=== PATIENT | female | born 1940 | race Caucasian/White ===

== ENCOUNTER 2019-07-24 08:42 | Inpatient (IN) | payer MEDICARE, OTHER, SELFPAY ==
[2019-07-17 08:03] VITALS: BMI 24.0
--- NOTE | 2019-07-23 13:01 | SUR.PREOP ---
left msg with pt regarding change in check times for her procedure. Requested her to ck-in at [phone] rather than [phone].
[2019-07-24] VITALS (22 sets, daily range): BP systolic 97–145; BP diastolic 50–89; PULSE 64–80; RESP 10–18; TEMP 35.9–37.1; O2SAT 3–99; BMI 25.6
--- NOTE | 2019-07-24 | DI.RAD.S_ITS ---
PROCEDURE: XR LUMBAR SPINE 2-3V INDICATIONS: L2-5 LAMINECTOMY, L4-5 INSTRUMENTATION TECHNIQUE: Fluoroscopic images were obtained during an operative procedure and submitted for interpretation following the completion of the procedure. COMPARISON: [facility], , MR LUMBAR SPINE WITHOUT CONTRAST, 04/16/2019, 7:58. [facility], CR, XR LUMBAR SPINE 2 OR 3 VIEWS, 05/21/2019, 11:39. FINDINGS: These fluoroscopic images were performed for intraoperative localization. On these images, pedicle screws are seen at L4 and L5. Vertical fixation rods are seen. There is a disc spacer seen at the L4-L5 level. Please correlate with intraoperative findings. IMPRESSION: Normal intraoperative examination. Dictated by: Ze Cano M.D. on 07/24/2019 at 14:55 Approved by: Ze Cano M.D. on 07/24/2019 at 14:55
[2019-07-24] MEDS: GABAPENTIN 300 MG CAPSULE PO ×2 (09:22→20:24)
[2019-07-24] MEDS: ACETAMINOPHEN 325 MG TABLET 975 MG PO (09:22)
[2019-07-24] MEDS: LACTATED RINGERS 1,000 ML 42 ML IV ×3 (09:22→15:47)
--- NOTE | 2019-07-24 09:35 | PM.PREOP ---
Pre-operative Note Interval Note History & Physical reviewed/Exam performed by Physician: Yes Changes to H&P: No
--- NOTE | 2019-07-24 09:36 | PM.OP.1 ---
Operative Date/Time/Diagnoses Date of procedure: 07/24/19 Time of procedure: 14:40 Pre-op diagnosis: Lumbar stenosis with radiculopathy Lumbar spondylolisthesis Post-op diagnosis: same Procedure & Clinicians Procedure: L4-5 TLIF (posterior/posterior interbody fusion) with cage L4, 5 screws Iliac crest bone graft aspirate L2-3, L3-4, L4-5 laminectomies Use of microscope Placement of epidural catheter Same procedure as scheduled: Yes Indications: [age] year old female with intractable pain from stenosis. They had failed conservative management and requested operative intervention. Risks and benefits of surgery were discussed and appropriate consents were obtained. Surgeon: Sid Jolly Vacuum Furnace Operator: Madiha Roy Anesthesia Type: General Operative Notes Findings: None Closure Type: primary Specimen(s): none sent Prosthetic devices, grafts, tissues, transplants, or devices: NuVasive MAS reline screws Globus Rise cage Applied: catheter Estimated Blood Loss (mL): 20 Procedure in detail: The patient was brought to the operating room and intubated on the table. A time-out was performed. They were then rolled over to the well-padded Ismael table in the prone position. Preoperative antibiotics were given. The back was prepped and draped in the standard sterile fashion. Using fluoroscopy, a 8 cm longitudinal incision was made to the right of the midline. We used Bovie to come down to and split the lumbodorsal fascia. Using fluoroscopy and monitoring, we then percutaneously placed Jamshidi needles down the pedicles of L4 and L5 on the right side. These were changed out to guidewires and then we tapped and then placed the NuVasive MAS Reline screw shanks. We then opened up the retractors and used Bovie to clear up the posterolateral gutter as well as medially along the lamina to the spinous processes. A bur was used to decorticate the transverse processes. We brought in the microscope. Using a combination of bur and Kerrison rongeurs, a laminectomy was performed from the right side. We cleared over past the midline and carefully depressed the dura until we were able to decompress the opposite side. We cleared out the neural foramen with greater than 50% facetectomy. This completed the laminectomy at L4-5. This was separate and distinct from the TLIF approach as we were extensively decompressing the severely stenotic canal and the nerves. We then began the TLIF prep. We carefully cleaned up the remainder of the foramen and facet until we could easily retract the exiting root as well as clearing medially below the dura and expose the disc space. The disc was prepped with bipolar and then an annulotomy was performed. We performed a diskectomy using a combination of paddles, celine, pituitaries, and curettes. We distracted the disc using a paddle and locked the retractor in an open position. We then filled the disc space with Osteocel bone graft. We then placed the globus Rise cage under fluoroscopy and then filled this in with more bone graft. The distraction on the retractor was released to compress down. This completed the posterior interbody fusion portion of the TLIF at L4-5. We then rotated the retractor and expanded to go up to the L3-4 level. We cleared off the soft tissue off the lamina. We performed a right-sided laminectomy at L3-4, clearing out the central canal as well as the neural foramen. Everything was clear with the ball probe at the end of this. We then took the retractor 1 level further and exposed L2-3. We performed right-sided laminectomy at L2-3 clearing up the central canal and the neural foramen. Everything was clear with a ball probe at the end. We then placed the screw heads, juana, and locked down the set screws. The wound was copiously irrigated. A small stab incision was made over the PSIS. We used a Jamshidi needle to aspirate several mL of bone marrow from the pelvis. This was mixed with the remaining Osteocel and combined with all of the locally harvested bone graft and placed in the posterolateral gutter for the posterior fusion of the TLIF at L4-5. An epidural catheter was then placed in the spinal canal by carefully depressing the dura and advancing it 6 cm cephalad under the remaining lamina without resistance. The muscle fascia was closed. The catheter was then injected with a solution containing 4 mL of 0.5% Marcaine, 1 mg Stadol, 4 mg Duramorph, and 100 mcg of fentanyl. This was injected without resistance and the catheter was pulled. We then went to the opposite side. Again using fluoroscopy, a 3 cm incision was made and Bovie was used to come down to split the fascia. Using neural monitoring and fluoroscopy, Jamshidi needles were advanced down the pedicles of L4 and L5 on the left side. These were switched over guidewires, tapped, and screws placed. We then placed a juana and locked the set screws on this side. The wound was irrigated. The fascia was closed. Vancomycin powder was placed in the wounds. The superficial and skin were closed. A sterile dressing was placed. The patient was then rolled over extubated and brought to recovery room without complications. Complications: none Post-operative Condition: stable Disposition: PACU Plan for aftercare: Inpatient. Up with therapy.
[2019-07-24] MEDS: CEFAZOLIN 2 GM/100 ML FROZ.PIGGY IV ×2 (10:35→19:03)
--- NOTE | 2019-07-24 11:15 | SUR.OPER ---
Prone on spine table, head in foam head support, padded chest and pelvic supports, gel pad at knees, lower legs supported by pillows; nipples, genitalia and toes free of pressure, arms secured on foam padded arm boards at <90 degrees abduction. Tape over blanket at thigh secured to table.
[2019-07-24] MEDS: THROMBIN (RECOMBINANT) 5,000 UNIT VIAL 5000 UNIT TOP (11:52)
[2019-07-24] MEDS: VANCOMYCIN 1,000 MG VIAL 1000 MG TOP (11:54)
[2019-07-24] MEDS: SODIUM CHLORIDE 0.9% 1,000 ML, GENTAMICIN 80 MG IRR (11:54)
[2019-07-24] MEDS: BUPIVACAINE 0.5% (PF) 4 ML, MORPHINE-PF 4 MG, BUTORPHANOL 1 MG, fentaNYL 100 MCG INJ (14:00)
[2019-07-24] MEDS: fentaNYL 100 MCG/2 ML INJ IV (15:45)
--- NOTE | 2019-07-24 16:02 | SUR.PHASEI ---
When patient falls to sleep, O2 saturation decreases to 88% on 4 liters. Encouraged deep breathing. O2 saturation back up to 97% with encouragement.
--- NOTE | 2019-07-24 16:52 | SUR.PHASEI ---
changed posterior dressing due to breakthrough bleeding using sterile technique with abd pad, 4x4s and large tegaderm. Tolerated without difficulty.
[2019-07-24] MEDS: dilTIAZem 30 MG TABLET 60 MG PO ×2 (17:47→20:23)
[2019-07-24] MEDS: LACTATED RINGERS 1,000 ML 125 ML IV (17:54)
[2019-07-24] MEDS: ACETAMINOPHEN 325 MG TABLET 650 MG PO (18:41)
[2019-07-24] MEDS: HYDROCODONE/ACET 5/325 TABLET 1 TAB PO (18:45)
[2019-07-24] MEDS: SENNOSIDES 8.6 MG TABLET 17.2 MG PO (20:22)
[2019-07-24] MEDS: HYDROMORPHONE 0.5 MG INJ IV (20:22)
[2019-07-24] MEDS: hydrOXYzine pamoate 25 MG CAPSULE PO (20:22)
[2019-07-24] MEDS: OXYBUTYNIN 5 MG ER TAB 20 MG PO (20:23)
[2019-07-24] MEDS: DOCUSATE 100 MG CAPSULE PO (20:24)
[2019-07-24] MEDS: CELECOXIB 200 MG CAPSULE PO (20:25)
--- NOTE | 2019-07-24 22:56 | PC.NURSE ---
Pt is A and O x 4, occ forgetful. Pt rates px 5/10 and got some relief from one [place], and better relief from 0.5 mg IVP dilaudid. She was able to eat dinner and drinks fluids. Her lungs are clear, slight murmur otherwise S1, S2. Large bruise on L hand from PIV start and PIV in L AC is positional. Waever output is WNL, clear yellow. + BTs. Pleasant and cooperative.
[2019-07-25] VITALS (10 sets, daily range): BP systolic 99–131; BP diastolic 45–78; PULSE 62–77; RESP 16–18; TEMP 36.7–37; O2SAT 92–97
[2019-07-25] MEDS: CEFAZOLIN 2 GM/100 ML FROZ.PIGGY IV (03:13)
[2019-07-25] MEDS: LACTATED RINGERS 1,000 ML 125 ML IV (03:15)
[2019-07-25] MEDS: hydrOXYzine pamoate 25 MG CAPSULE PO (03:19)
[2019-07-25 05:11] LABS: Hematocrit 33.7 % (36-46); Hemoglobin 11.6 g/dL (12.0-16.0)
[2019-07-25 05:17] LABS: Blood Urea Nitrogen 14 mg/dL (7-17); Calcium 8.6 mg/dL (8.4-10.2); Carbon Dioxide 28 mmol/L (22-32); Chloride 100 mmol/L (98-107); Estimated Glomerular Filt Rate > 60.0 mL/min (>60); Glucose 144 mg/dL (80-110); HEMOLYSIS < 15 (0-50); Potassium 4.4 mmol/L (3.4-5.1); Sodium 135 mmol/L (137-145)
--- NOTE | 2019-07-25 06:19 | PC.NURSE ---
Pr POD 1 s/p L2-L5 laminectomy and L4-L5 fusion with cage. DSG to mid back with quarter size shadow drainage of bottom border. Pt with slight numbness to right leg/foot that's normal for me and tingling to left foot. Pt able to perform ankle waves. CMS intact. Pt denied all pain overnight. Pt has Piece Marker Small Arms Esophagus. Pt reports her 60mg cardizem 4 times/day is for this condition and is to help limit coughing. Pt had dry cough 2-3 times/hour overnight. Vistaril given to help with spasms, pt did report this to be helpful. Weaver patent. Order to remove on POD2. PIV in right AC intact. Continuous IVF of LR @125cc/hr. Fall precautions reinforced. Discussed use of call light for assist out of bed (no OOB activity overnight), use of bed alarm. Reinforced post-op activity precautions. Pt alert and oriented x4, slightly forgetful as to time of day overnight, easily reoriented. Order to titrate os to keep 90%, pt required o2 NC to maintain sat while asleep. Other VSS. Con't to monitor for s/s infection, provide ongoing education to post-op healing and activity limitations. Monitor for effective pain control.
--- NOTE | 2019-07-25 07:53 | PM.PNPO.1 ---
Subjective Subjective Date Patient Seen: 07/25/19 Time Patient Seen: 07:53 Interval history: She is doing very well. Minimal pain. Exam Vital Signs (past 8 hours): - 07/25/19 00:05 07/25/19 03:00 07/25/19 04:57 Temperature 98.1 F 98.5 F Pulse Rate 62 76 66 Respiratory Rate 16 18 16 Blood Pressure 99/45 L 124/49 L 104/53 L Pulse Oximetry 92 93 97 Oxygen Delivery Method Nasal Cannula Oxygen Flow Rate 0 Const Orientation: alert and oriented x3 Back/Spine/Pelvis Other: Dressing changed yesterday for heavy drainage immediately postoperatively but CDI today. 5/5 motor both lower extremities. Objective Labs Result Diagrams: 07/25/19 04:50 07/25/19 04:50 Labs: Laboratory Results - last 24 hr 07/25/19 07/25/19 04:50 04:50 Hgb 11.6 L Hct 33.7 L Sodium 135 L Potassium 4.4 Chloride 100 Carbon Dioxide 28 BUN 14 Creatinine 0.70 Estimated GFR > 60.0 BUN/Creatinine Ratio 20.0 Glucose 144 H Calcium 8.6 Assessment & Plan Post-op Postoperative Procedures: Procedures Operation Date: 07/24/19 10:15 Actual Procedures Side Surgeon p L2-5 laminectomies, L45 instrumentated fusion Sid Jolly MD she is doing very well. I explained to her that her good pain control right now is most likely due to her epidural. That is going to wear off today and I do expect the pain levels to increase. We're going to mobilize her with physical therapy. She hopes to DC to rehab in a few
[2019-07-25] MEDS: estradioL 1 MG TABLET 2 MG PO (08:53)
[2019-07-25] MEDS: OXYBUTYNIN 5 MG ER TAB 20 MG PO ×2 (08:54→19:50)
[2019-07-25] MEDS: MEDROXYPROGESTERONE ACETATE 2.5 MG TABLET 5 MG PO (08:54)
[2019-07-25] MEDS: DOCUSATE 100 MG CAPSULE PO ×2 (08:54→19:49)
[2019-07-25] MEDS: FLUoxetine 20 MG CAPSULE 40 MG PO (08:58)
[2019-07-25] MEDS: HYDROCODONE/ACET 5/325 TABLET 1 TAB PO ×2 (08:59→16:12)
[2019-07-25] MEDS: dilTIAZem 30 MG TABLET 60 MG PO ×4 (09:00→20:53)
--- NOTE | 2019-07-25 11:04 | PT.IIE ---
Current Diagnoses Unilateral primary osteoarthritis, right hip (07/24/19) Spondylolisthesis, lumbar region (07/24/19) Spinal stenosis, lumbar region with neurogenic claudication (07/24/19) Surgery Performed Operation Date: 07/24/19 10:15 Actual Procedures p L2-5 laminectomies, L45 instrumentated fusion - Sid Jolly MD Surgical History (Last Updated 07/17/19 @ 08:31 by Aletha Rivas RN) History of cataract extraction (Acute) History of surgery (Acute) Hx of dilation and curettage (Acute) Medical History (Last Updated 07/24/19 @ 11:50 by Sully hCavez MD) Anxiety (Acute) Arthritis (Acute) Cervical spinal stenosis (Acute) Depression (Acute) Diarrhea (Acute) Difficult airway for intubation (Acute) DJD (degenerative joint disease) (Acute) HLD (hyperlipidemia) (Acute) HTN (hypertension) (Acute) Incontinence of feces (Acute) Inflammatory bowel disease (Acute) Murmur, cardiac (Acute) Non-rheumatic tricuspid valve insufficiency (Acute) Nutcracker esophagus (Acute) Osteoporosis (Acute) Rectal fissure (Acute) Scoliosis (Acute) Spinal stenosis (Acute) Urinary incontinence, mixed (Acute) Zenkers diverticulum (Acute) Physical Therapy Inpatient Evaluation/Re-Eval M1 PT/OT-IP Prior Functional Status Start: 07/24/19 17:26 Freq: NEEDED Status: Active Protocol: Document 07/25/19 09:40 (Rec: 07/25/19 11:04 [email or web address]) Medical Review Prior Functional Status Medical History Reviewed Yes Diet/Fluid Consistency Regular Communication No deficits noted. Able to make needs known. Mobility and Gait Pt stated she was mostly homebound since Mar, 2019 d/t ongoing back pain and multiple falls. She has been using a SPC for home and community mobility. She states that she tends to amb with a shuffling gait d/t poor balance. Activities of Daily Living and IADL's Pt lives alone and able to perform all ADLs and IADLs with a SPC. She also drives prior to surgery. Social History Household Members none Living Arrangements House Number of Floors (Floors) One Floor Number of Stairs To Enter/Railing? 3 DENISE with R rail 1 DENISE from garage without rail . Has a dog lives in a garage that require her to feed. Home Environment High Toilet,Walk in Shower,Tub /Shower Home Equipment Four Wheel Walker,Straight Cane,Raised Toilet Seat w/ Armrests,Tub Transfer Bench, Hand Held Shower,Clinic Assistant,Grab Bars In Shower Employment Status Retired Additional Social History Comment Pt lives alone in [place] . She also has a dog that lives primarily in the garage and stated she has difficulty getting to the garage d/t the step. She currently has a friend staying at her house to feed her dog. Pt has a son that lives in [place]. M2 PT-IP Current Condition Start: 07/24/19 17:26 Freq: NEEDED Status: Active Protocol: Document 07/25/19 09:40 HH (Rec: 07/25/19 11:04 [email or web address]) Physical Therapy Current Condition Current Condition Evaluation Date 07/25/19 Treatment Diagnosis L2-5 Laminectomies, L4-L5 TLIF , difficulty in walking, poor balance Onset Date 07/24/19 Precautions Lumbar Precautions Log Roll,No Twisting,Limit Bending,Lifting Restriction of 10 lbs,Gait Belt above Incisional Area Weight Bearing Status Weight Bearing Status Weight Bear as Tolerated M3 PT-IP Subjective Start: 07/24/19 17:26 Freq: NEEDED Status: Active Protocol: Document 07/25/19 09:40 HH (Rec: 07/25/19 11:04 [email or web address]) Subjective Physical Therapy Visit Type Type Initial Evaluation Visit Start Time 09:40 Visit Stop Time 10:15 Total Visit Minutes 35 Notes Per nursing, pt seemed to have poor short term memory. Number of ASSISTANT EDUCATION DIRECTOR Visits 0 Physical Therapy Visit Comments Patient Comments My back has been feeling fine but im not sure if i could move much since i was very immobilized since Mar. Patient Goals To partipate rehab after this surgery. Therapy Pain Assessment Pain When Pain Assessed During Mobility Pain Present Pain Present Pain Reported Location bilateral legs and back Intensity 3 Scale Used Numeric (1 - 10) Description Aching,Acute Pain Behaviors Facial Grimacing Pain Management Techniques Apply Cold,Timing of Activity with Medications M4 PT-IP Mobility and Gait Start: 07/24/19 17:26 Freq: NEEDED Status: Active Protocol: Document 07/25/19 09:40 HH (Rec: 07/25/19 11:04 [email or web address]) PT-Bed Mobility Assessment Rolling Type of Rolling Log Rolling,Roll to Left Level of Assist Moderate Assistance,1 Person Assistance Supine to Sit Supine to Sit Moderate Assistance,1 Person Assistance Scooting Scooting to Edge of Bed Minimal Assistance PT-Transfer Assessment Sit to and From Stand Sit to and from Stand Contact Guard Assistance,Use of Upper Extremities Equipment Transfer Assistive Device Gait Belt,Front Wheeled Walker Orthotic/Prosthetic Devices or Brace: No Transfers Transfer Destination Bed,Chair Transfer Technique amb with FWW Transfer Ability Level of Assist Contact Guard Assistance,Use of Upper Extremities Comments Mobility Comments Pt was up in bed upon assessment and she was shaky grossly. She does not recall post op precautions and appear to have flat affect. Pt often needs cues for her current task and behave slightly impulsive. Educated pt post op precautions followed by log roll method. Assisted pt to bend her R knee at first and assisted her to roll to L followed by SL to sit with mod A x1. Pt then able to scoot towards EOB with min A with bed pad. She then stood up with CGA and able to amb to hallway. She then came back to room for nursing to assess wound and returned to chair after. Pt demonstrated poor eccentric descend without using chair armrest for support. Educated pt regarding safety chair and walker management. Call light within reach and recommended nursing to place chair alarm. Gait Assessment Gait Gait Assistance Required: Contact Guard Assist Distance (Feet) 180 Able to Maintain Weight Bearing Status Yes During Gait Assistive Devices Assistive Device Gait Belt,Front Wheeled Walker Orthotic/Prosthetic Devices or Brace: No Gait Deviations General Gait Pattern Antalgic,Decreased Stride Length,Decreased Feet Clearance,Flexed Trunk Factors Limiting Gait Function Factors Limiting Gait Function Decreased Activity Tolerance, Decreased Strength,Difficulty Following Directions,Limited Range of Motion,Pain,Poor Balance,Poor Safety Awareness Comments Gait Comments Pt was able to amb 2 laps at [facility] with FWW CGA. She amb with small steps without heel contact and flexed trunk posture. Pt tends to slow down during turns as well. But overall she was steady and was able increase her gait speed as distance increases. Stair Climbing Assessment Comments Stair Climbing Comments did not assess PT-Balance Assessment Sitting Balance and Reactions Static Sitting Balance Ability Good Dynamic Sitting Balance Ability Good Standing Balance and Reactions Static Standing Balance Ability Good Dynamic Standing Balance Ability Fair Device Used FWW M5 PT-IP Objective Assessments Start: 07/24/19 17:26 Freq: NEEDED Status: Active Protocol: Document 07/25/19 09:40 (Rec: 07/25/19 11:04 [id number]) Orientation Orientation/Cognition Level of Alertness Alert Orientation Name,Age,Birthday,Month,Date, Year,Day of Week,Place, Situation Language Function Ability Hard of Hearing Safety Awareness Decreased Safety Awareness Memory Description Short Term Impaired Comments She does not recall post op precautions and appear to have flat affect. Pt often needs cues for her current task and behave slightly impulsive. Gross Range of Motion Upper Extremity ROM Assessment Within Functional Limits Lower Extremity ROM Assessment Within Functional Limits Strength Upper Extremity Strength Assessment Within Functional Limits Lower Extremity Strength Assessment Bilaterally Impaired Hip 4-/5 Knee 4-/5 Ankle 4-/5 Sensation Assessment Sensation Gross Sensation Right LE Impaired,Left LE Impaired Light Touch Impaired Sensation Description Numbness Comments Sensation Comments Pt described decreased sensation to LT distal worse than proximal M6 PT-IP Treatment Start: 07/24/19 17:26 Freq: NEEDED Status: Active Protocol: Document 07/25/19 09:40 (Rec: 07/25/19 11:04 [id number]) Physical Therapy Treatment Exercises Exercises Ankle Pumps,Gluteal Sets Education Education Provided Precautions,Weight Bearing Status,Post-Op Packet,Safety M7 PT-IP Assessment and Plan Start: 07/24/19 17:26 Freq: NEEDED Status: Active Protocol: Document 07/25/19 09:40 (Rec: 07/25/19 11:04 [id number]) PT Summary Assessment and Plan Potential Rehabilitation Potential Good Status of Condition at Evaluation Evolving Summary Impairments Pain,ROM,Strength,Balance,Tone ,Cognition,Bed Mobility, Transfers,Gait,Activity Tolerance Assessment Summary Pt is a 78yo female s/p POD 1 L2-5 laminectomies and L4-5 TLIF. She does not recall post op precautions and appear to have flat affect. Pt often needs cues for her current task, post op precautions and behave slightly impulsive. Pt is also somewhat shaky grossly and amb with flexed trunk and small steps, along with decreased gait speed during turns. All of these indicate possible Parkinson's Disease which might contribute to her high fall risks. Pt also lives alone and she will need assistance for ADLs/ IADLs at this point d/t limited mobility and strength. Pt will benefit from going to skilled rehab to improve her balance and overall mobility. Goals Bed Mobility Goal Standby Assistance Transfer Goal Standby Assistance,Front Wheeled Walker Gait Goal Standby Assistance,Front Wheel Walker Gait Distance 500 Other Goals 3 DENISE with R rail 1 DENISE from garage without rail to feed her dog. Days to Meet Goals 10 Frequency of Treatment Frequency Of Treatment Twice a Day Treatment Plan Physical Therapy Treatment Plan Bed Mobility Training,Transfer Training,Gait Training, Therapeutic Exercise,Balance Retraining,Post Op Education, Discharge Planning,Hot or Cold Pack,Neuromuscular Re-ed Other Recommendations and Next Treatment log roll Focus review post op precautions mobility as aleksey with FWW Recommendations To Nursing Amount of Assist Needed 1 Person Assist Discharge Recommendations PT Discharge Recommendations SNF Rehab Transportation Needs at Discharge Private Vehicle
--- NOTE | 2019-07-25 11:14 | PC.NURSE ---
Assess- Patient is Alert and Oriented x3, but seems to get confused at moments. Dressing to her lower back is cdi with small amount of old,dried bloody drainage. Given 1 Vicodin for complaints of pain and before working with therapy. Stovall order was to come out post op second day, but patient insisted on having it out today. Student nurse and her instructor took out stovall catheter and patient tolerated this well. She is sitting up in her chair now and comfortable.
--- NOTE | 2019-07-25 15:43 | OT.IP.EVAL ---
Current Diagnoses Unilateral primary osteoarthritis, right hip (07/24/19) Spondylolisthesis, lumbar region (07/24/19) Spinal stenosis, lumbar region with neurogenic claudication (07/24/19) Surgery Performed Operation Date: 07/24/19 10:15 Actual Procedures p L2-5 laminectomies, L45 instrumentated fusion - Sid Jolly MD Past Medical History (Last Updated 07/24/19 @ 11:50 by Sully Chavez MD) Anxiety (Acute) Arthritis (Acute) Cervical spinal stenosis (Acute) Depression (Acute) Diarrhea (Acute) Difficult airway for intubation (Acute) DJD (degenerative joint disease) (Acute) HLD (hyperlipidemia) (Acute) HTN (hypertension) (Acute) Incontinence of feces (Acute) Inflammatory bowel disease (Acute) Murmur, cardiac (Acute) Non-rheumatic tricuspid valve insufficiency (Acute) Nutcracker esophagus (Acute) Osteoporosis (Acute) Rectal fissure (Acute) Scoliosis (Acute) Spinal stenosis (Acute) Urinary incontinence, mixed (Acute) Zenkers diverticulum (Acute) Surgical History (Last Updated 07/17/19 @ 08:31 by Aletha Rivas RN) History of cataract extraction (Acute) History of surgery (Acute) Hx of dilation and curettage (Acute) Occupational Therapy Inpatient Evaluation/Re-Eval M1 PT/OT-IP Prior Functional Status Start: 07/24/19 17:26 Freq: NEEDED Status: Active Protocol: Document 07/25/19 15:43 PJOsorio (Rec: 07/25/19 17:04 PJM [id number]) Medical Review Prior Functional Status Medical History Reviewed Yes Diet/Fluid Consistency Regular Communication WNL Mobility and Gait Pt stated she was mostly homebound since Mar, 2019 d/t ongoing back pain and multiple falls due to RLE buckling. She has been using a SPC for home and community mobility. Activities of Daily Living and IADL's Pt lives alone and able to perform all ADLs and IADLs with a SPC. Pt drives to small grocery store and has her wad blanking press adjuster assist with bring groceries in. Utility Worker comes 1x/month to clean but also assists intermittently with dog care and taking trash out. Prior Functional Level (Other details) Pt plans to get Meals on Wheels after d/c. Pt has 2 dogs, one that stays in house, one in garage. Pt will have wad blanking press adjuster assist with dog care as she has difficulty accessing garage due to stairs. Social History Household Members none Living Arrangements House Number of Floors (Floors) One Floor Number of Stairs To Enter/Railing? 3 DENISE Home Environment High Toilet,Walk in Shower, Built-In Shower Seat Home Equipment Front Wheel Walker,Straight Cane,Bedside Commode,Hand Held Shower,Financial Reporting Manager,Grab Bars In Shower Employment Status Retired Additional Social History Comment pt has toilet safety frame and plans to use BSC next to bed at night M2 OT-IP Current Condition Start: 07/25/19 16:44 Freq: Status: Active Protocol: Document 07/25/19 15:43 PJM (Rec: 07/25/19 17:04 PJ [id number]) Occupational Therapy Current Condition Current Condition Evaluation Date 07/25/19 Treatment Diagnosis decreased self care, mobility s/p L2-5 lami with L4-5 TLIF Diagnosis Onset Date 07/24/19 Post Operative Precautions Lumbar Precautions Log Roll,No Twisting,Limit Bending,Lifting Restriction of 10 lbs,Gait Belt above Incisional Area M3 OT- IP Subjective and Pain Start: 07/25/19 16:44 Freq: Status: Active Protocol: Document 07/25/19 15:43 PJM (Rec: 07/25/19 17:04 PJ [id number]) OT- Subjective Occupational Therapy Visit Type Type Initial Evaluation Visit Start Time 15:07 Visit Stop Time 15:43 Total Visit Minutes 26 Occupational Therapy Visit Comments Patient Comments My wad blanking press adjuster or her friend can help me at home. Patient/Caregiver Goals to go home and see her dogs, to have less back pain and stronger R leg so she doesn't fall OT Pain Assessment Pain When Pain Assessed After Treatment Pain Present Pain Present Pain Reported Location Back Intensity 3 Scale Used Numeric (1 - 10) Description Aching,Acute M4 OT- IP ADL's Start: 07/25/19 16:44 Freq: Status: Active Protocol: Document 07/25/19 15:43 PJM (Rec: 07/25/19 17:04 PJ [id number]) OT [id number] General Evaluation Self-Feeding Ability Independent OT ADL-Grooming General Evaluation Grooming Ability Standby Assistance Areas Needing Assistance Retrieving/Set-up of Grooming Items,Face Washing Comments OT Grooming Comments in bed or chair OT ADL-Oral Care General Eval Oral Care Ability Standby Assistance Areas of Assistance Retrieving/Set-Up of Items Comments Oral Care Comments in bed or chair OT ADL-Dressing General Eval Upper Body Dressing Ability Standby Assistance Lower Body Dressing Ability Maximum Assistance Assistive Devices Dressing Assistive Devices Long Handled Shoe Horn,Financial Reporting Manager ,Sock Aid Comments OT Dressing Comments Began education re: lower body dressing with adaptive equipt with emphasis on lumbar spine precautions OT ADL-Toileting Devices Toileting Assistive Devices Toilet Paper Aid Comments OT Toileting Comments Pt declined this session. Pt obtained toilet paper aid, but has not used it yet. Provided education re: technique and precautions. OT ADL-Bathing Devices Bathing Equipment Long Handled Sponge or Mallory, Shower Chair with Arms,Grab Bars Comments OT Bathing Comments Provided long bath sponge and education re: lumbar spine precautions during bathing and drying off. Pt states she does not want to shower here. M5 OT- IP IADL's Start: 07/25/19 16:44 Freq: Status: Active Protocol: Document 07/25/19 15:43 PJM (Rec: 07/25/19 17:04 [facility] [email or web address]) OT-Instrumental Activities of Daily Living Deficits IADL Deficits Identified Deficits Home Safety Awareness Awareness of Need for Assistance at Home Good Awareness Ability to Problem Solve Emergency Able to Problem Solve Situations Medication Management Medication Management No Deficits Identified Money Management Money Management No Deficits Identified Meal Preparation Meal Preparation No Deficits Identified Meal Preparation Comments Pt plans to get Meals on Wheels; provided education re: carrying items with FWW. Gas Station Attendant Gas Station Attendant Caregiver Provides Assist Gas Station Attendant Comments Pt has wad blanking press adjuster to assist PRN M6 OT- IP Functional Cognition Start: 07/25/19 16:44 Freq: Status: Active Protocol: Document 07/25/19 15:43 PJM (Rec: 07/25/19 17:04 [facility] [id number]) Cognitive Factors Limiting Selfcare Function Cognitive Ability Level of Alertness Alert Patient Orientation Name,Age,Birthday,Month,Date, Year,Day of Week,Place, Situation Attention Span Ability Capable of Focused Attention, Capable of Sustained Attention Ability to Follow Commands Able to Follow One Step Commands Memory Description No Deficits Noted Safety Awareness Underestimates Need for Assistance Problem Solving Ability Needs Assist to Identify Solutions Cognitive Comments Cognitive Assessment Comments Pt recalls 3/3 lumbar spine but needs verbal cues ot apply them for ADLS/IADLS. OT- Vision and Hearing OT- Hearing Assessment OT- Hearing Assessment WFL OT- Vision Assessment Visual Acuity Glasses For Reading M7 OT- IP Mobility and Balance Start: 07/25/19 16:44 Freq: Status: Active Protocol: Document 07/25/19 15:43 PJM (Rec: 07/25/19 17:04 [facility] [id number]) OT- Bed Mobility Assessment Scooting Scooting Up and Down in Bed Maximum Assistance,2 Person Assistance OT-Transfer Assessment Comments Mobility Comments pt declined OOB this session due to 2 prior PT session; see P.T. notes OT- Gait Assessment Comments Gait Ability Comments see P.T. notes OT- Balance Assessment Comments Other Balance Tests/Deviations/Treatment see P.T. notes : M8 OT- IP Objective Assessments Start: 07/25/19 16:44 Freq: Status: Active Protocol: Document 07/25/19 15:43 PJM (Rec: 07/25/19 17:04 [facility] [id number]) OT Gross Range of Motion Upper Extremity Range of Motion Assessment Left Impaired ROM Impairments Pt reports L: rotator cuff tear and self limtis scaption to 90 degrees due to pain OT Strength Upper Extremity Strength Assessment Within Functional Limits OT- Coordination Assessment Comments Coordination Comments BUE WFL OT-Muscle Tone Assessment Muscle Tone WNL Yes OT Sensation Assessment Comments Summary Comments BUE WNL per pt Edema Edema Absent M9 OT- IP Assessment and Plan Start: 07/25/19 16:44 Freq: Status: Active Protocol: Document 07/25/19 15:43 PJM (Rec: 07/25/19 17:04 [facility] [id number]) OT Summary Assessment and Plan Potential Rehabilitation Potential Good Analytic Complexity at Evaluation Low Summary OT Impairments Pain,Strength,Balance, Functional Mobility,Grooming, Dressing,Toileting,Bathing, Toilet Transfers,Shower Transfers,Activity Tolerance Assessment Summary Low complexity OT assessment completed on this 78 yr old woman admitted for L2-5 lami's and L4-5 TLIF. Pt normally lives alone and is independent with ADLs/IADLS and driving but activity tolerance has been limited by low back pain and RLE weakness. Pt presents with performance deficits in all functional mobility/ transfers, standing grooming, lower body dressing, bathing and toileting due to post op pain. Began education re: lumbar spine precautions, adapted ADL /IADL techniques and bathroom safety equipment options. Pt will benefit from OT services here to address goals below. Pt plans to d/c home with intermittent assist from her wad blanking press adjuster. Recommend OT services as pt lives alone. Goals Grooming Goal Independent Dressing Goal Independent,Long Handled Shoe Horn,Financial Reporting Manager,Sock Aid Toileting Goal Independent,Toilet Paper Aid Bathing Goal Standby Assistance Toilet Transfer Goal Independent,Raised Toilet Seat ,Toilet Safety Frame Shower Transfer Goal Contact Guard Assistance Patient/Caregiver Education Goal Demonstrate Post-Op Precautions,Demonstrate Energy Conservation and Pacing Days to Meet Goals 3 Frequency of Treatment Frequency Of Treatment Once a Day Treatment Plan OT Treatment Plan ADL Training,Functional Mobility,Patient/Family Education,Discharge Planning Discharge Recommendations OT Discharge Recommendations Home with Assistance,Home Health Transportation Needs at Discharge Private Vehicle
--- NOTE | 2019-07-25 16:15 | PT.IPTN ---
Current Diagnoses Unilateral primary osteoarthritis, right hip (07/24/19) Spondylolisthesis, lumbar region (07/24/19) Spinal stenosis, lumbar region with neurogenic claudication (07/24/19) Surgery Performed Operation Date: 07/24/19 10:15 Actual Procedures p L2-5 laminectomies, L45 instrumentated fusion - Sid Jolly MD Physical Therapy Treatment Note M2 PT-IP Current Condition Start: 07/24/19 17:26 Freq: NEEDED Status: Active Protocol: Document 07/25/19 09:40 HH (Rec: 07/25/19 11:04 [id number]) Physical Therapy Current Condition Current Condition Evaluation Date 07/25/19 Treatment Diagnosis L2-5 Laminectomies, L4-L5 TLIF , difficulty in walking, poor balance Onset Date 07/24/19 Precautions Lumbar Precautions Log Roll,No Twisting,Limit Bending,Lifting Restriction of 10 lbs,Gait Belt above Incisional Area Weight Bearing Status Weight Bearing Status Weight Bear as Tolerated M3 PT-IP Subjective Start: 07/24/19 17:26 Freq: NEEDED Status: Active Protocol: Document 07/25/19 15:45 SP (Rec: 07/25/19 16:50 SP [id number]) Subjective Physical Therapy Visit Type Type Treatment Note Visit Start Time 15:45 Visit Stop Time 16:15 Total Visit Minutes 30 Number of HORSE RACETRACK MANAGER Visits 1 Physical Therapy Visit Comments Patient Comments My back has been doing ok and hasn't taken any pain meds since this am. Patient Goals To partipate rehab after this surgery. Therapy Pain Assessment Pain When Pain Assessed During Mobility Pain Present Pain Present Pain Reported Location bilateral legs and back Intensity 5 Scale Used sore at rest, 5/10 LBP during mobility Description Pressure,Spasm,Throbbing Pain Behaviors Restlessness Pain Management Techniques Re-positioning M4 PT-IP Mobility and Gait Start: 07/24/19 17:26 Freq: NEEDED Status: Active Protocol: Document 07/25/19 15:45 SP (Rec: 07/25/19 16:50 SP [id number]) PT-Bed Mobility Assessment Rolling Type of Rolling Log Rolling,Roll to Left Level of Assist Contact Guard Assistance Supine to Sit Supine to Sit Moderate Assistance,1 Person Assistance,Head of Bed Elevated,Bedrails Scooting Scooting to Edge of Bed Contact Guard Assistance PT-Transfer Assessment Sit to and From Stand Sit to and from Stand Contact Guard Assistance,Use of Upper Extremities Equipment Transfer Assistive Device Gait Belt,Front Wheeled Walker Orthotic/Prosthetic Devices or Brace: No Transfers Transfer Destination Chair Transfer Technique amb with FWW Transfer Ability Level of Assist Contact Guard Assistance,Use of Upper Extremities Comments Mobility Comments Pt was supine in elevated bed when arrived. Completed log roll with CGA cuing for knees with shlds and use of HR for support. supine to sitting Mod A of 1 Therapist INSTRUCTIONAL SERVICES SPECIALIST to pull from as RUE pushed from bed to transition to sitting and able to scoot CGA herself. Sit to stand with mod cuing for proper hand placement push up from bed and reaching back with FWW proper positioning fully for safety. Pt complete toilet transfer with CGA and Mod cuing for use of rail for safe and slow descent and not FWW for support. Pt had 1 LOB retro with Min A to recovery during backing up to toilet. Pt was up in chair when returned from walk with chair alarm on and call light and all needs in reach when left, nurse present in room. Gait Assessment Gait Gait Assistance Required: Contact Guard Assist,Minimum Assistance,1 Person Assist Distance (Feet) 514 Able to Maintain Weight Bearing Status Yes During Gait Assistive Devices Assistive Device Gait Belt,Front Wheeled Walker Orthotic/Prosthetic Devices or Brace: No Gait Deviations General Gait Pattern Antalgic,Decreased Stride Length,Decreased Feet Clearance,Flexed Trunk,Narrow Based Gait Factors Limiting Gait Function Factors Limiting Gait Function Decreased Activity Tolerance, Decreased Strength,Difficulty Following Directions, Incoordination,Limited Range of Motion,Poor Balance,Poor Safety Awareness Comments Gait Comments Pt required CGA-Min A durign ambulation from R side of bed to stairs and back usign FWW and continuous cuing for increase stride length, foot clearance, heel toe, slower pacing and upright posture to decrease toes catching floor with Min to slow her down and decrease fall risk w/c follow but declined use or stop rests , patient maintained for 3 steps then proceeded same gait . HORSE RACETRACK MANAGER recommended she have someone assist her and be with her at all times and to take care of her dog. Stair Climbing Assessment Evaluation Level of Assist On Stairs Minimal Assistance,1 Person Assistance Devices Stair Climbing Assistive Devices Straight Cane,Right Railing Technique/Endurance Stair Climbing Direction Ascend and Descend Stair Climbing Technique Step Over Step Number of Steps Climbed 3 Stair Climbing Set # Repetitions (reps) 1 Comments Stair Climbing Comments Pt was ableto ascend 3 stairs with Min A ascend/descending using R HR and SPC in LUE for home environment front door. Did not try plateform step, try tomorrow for garage enterance. PT-Balance Assessment Sitting Balance and Reactions Static Sitting Balance Ability Good Dynamic Sitting Balance Ability Good Standing Balance and Reactions Static Standing Balance Ability Good Dynamic Standing Balance Ability Poor Device Used FWW M5 PT-IP Objective Assessments Start: 07/24/19 17:26 Freq: NEEDED Status: Active Protocol: Document 07/25/19 09:40 HH (Rec: 07/25/19 11:04 [id number]) Orientation Orientation/Cognition Level of Alertness Alert Orientation Name,Age,Birthday,Month,Date, Year,Day of Week,Place, Situation Language Function Ability Hard of Hearing Safety Awareness Decreased Safety Awareness Memory Description Short Term Impaired Comments She does not recall post op precautions and appear to have flat affect. Pt often needs cues for her current task and behave slightly impulsive. Gross Range of Motion Upper Extremity ROM Assessment Within Functional Limits Lower Extremity ROM Assessment Within Functional Limits Strength Upper Extremity Strength Assessment Within Functional Limits Lower Extremity Strength Assessment Bilaterally Impaired Hip 4-/5 Knee 4-/5 Ankle 4-/5 Sensation Assessment Sensation Gross Sensation Right LE Impaired,Left LE Impaired Light Touch Impaired Sensation Description Numbness Comments Sensation Comments Pt described decreased sensation to LT distal worse than proximal M6 PT-IP Treatment Start: 07/24/19 17:26 Freq: NEEDED Status: Active Protocol: Document 07/25/19 15:45 SP (Rec: 07/25/19 16:50 SP [id number]) Physical Therapy Treatment Education Education Provided Precautions,Weight Bearing Status,Post-Op Packet,Safety Other Treatments Other Treatment Performed Pt did not know precautions, cuing for maintaining. M7 PT-IP Assessment and Plan Start: 07/24/19 17:26 Freq: NEEDED Status: Active Protocol: Document 07/25/19 15:45 SP (Rec: 07/25/19 16:50 SP [id number]) PT Summary Assessment and Plan Potential Rehabilitation Potential Fair Status of Condition at Evaluation Evolving Summary Impairments Pain,ROM,Strength,Balance,Tone ,Cognition,Bed Mobility, Transfers,Gait,Activity Tolerance Assessment Summary See mobility comments. Pt required CGA- mod A for all mobility. Required Mod- Max cuign for safety proepr hand placement and gait phases with slow upright pacing for improved foot clearance and stride, toes caught arlene required Min A for maintaining pace. HORSE RACETRACK MANAGER discussed with patient recommend someone to assit her when in standing and with her at all times for safety Well that's got going to happen unless hire someone . HORSE RACETRACK MANAGER recommended multiple times for seated in w/c trailing for rest recovery and patient declined, reported increased LBP post gait, discussed with nurse. Goals Bed Mobility Goal Standby Assistance Transfer Goal Standby Assistance,Front Wheeled Walker Gait Goal Standby Assistance,Front Wheel Walker Gait Distance 500 Other Goals 3 DENISE with R rail 1 DENISE from garage without rail to feed her dog. Days to Meet Goals 10 Frequency of Treatment Frequency Of Treatment Twice a Day Treatment Plan Physical Therapy Treatment Plan Bed Mobility Training,Transfer Training,Gait Training, Therapeutic Exercise,Balance Retraining,Post Op Education, Discharge Planning,Hot or Cold Pack,Neuromuscular Re-ed Other Recommendations and Next Treatment log roll Focus review post op precautions mobility as aleksey with FWW Recommendations To Nursing Amount of Assist Needed 1 Person Assist Discharge Recommendations PT Discharge Recommendations SNF Rehab Transportation Needs at Discharge Private Vehicle
--- NOTE | 2019-07-25 16:19 | CM.DANOTE ---
DCP/Assessment: Reviewed chart. Patient is a 78yr old female admitted [facility] under [facility]BS status for spine surgery performed by Dr. Jolly. PCP is Rola Rao. Primary payor is 1)Medicare 2)[facility]. Per provider, notes it is suggested that patient will need SNF at time of d/c because she lives alone and needs assistance after surgery? Patient currently confirmed OBS status. TUNNEL KILN OPERATOR met with patient explained CM/SW role. Patient notified that she is currently not inpatient and will not qualify for SNF stay at this time. Patient appeared to understand but reports that she had planned to go to rehab. Prior to admit patient somewhat I at home. She drove to/from appointments denies needing much assistance. Notified patient that she can go to rehabilitation if she qualifies under Medicare guidelines and pays privately for room/board. Patient reports that she most likely will be better off at home. Assured patient that CM team would discuss with therapy team. Patient reports that she believes that she has someone to stay with her in the home. She has someone there now taking care of her pets. Patient open to HH and choice list left. Patient aware that Dr. Jolly will need to agree to HH and she will need to qualify for that as well. Patient inquiring about meals on wheels. Provided her with the resource. P: CM team to follow up with patient and provider in AM to determine if HH would be beneficial. Patient will need to work on stairs prior to d/c from [facility] Both PT and OT involved and aware of status. PRITI Gomez Discharge Planning/Care Management Discharge Assessment Start: 07/25/19 16:13 Freq: Status: Active Protocol: Document 07/25/19 16:13 KJS (Rec: 07/25/19 16:18 KJS [id number]) Discharge Planning Assessment Assigned Center Medical Director PRITI Gomez Contact Information Shakila Navdeep (friend) [phone] Advance Directives? Yes History Provided By Patient,Medical Record Prior Living Arrangements House Household Members none Type of transporation used prior to Drives own vehicle admit Independent with ADL's Yes Is patient alert and oriented? Yes Needs Assistance With Home Chores / Shopping Caregiver for Another No Patient/Family Preference Home with Home Health Comment Patient initially thought she would be going to SNF. Pateint OBS status and understands that if SNF needed she will need to pay privately for room /board. TUNNEL KILN OPERATOR requested that both PT and OT work with patient on stairs and confidence building . Patient most likely will be safe to go home once she stabilizes with mobility. Patient does have someone she states that can stay with her. However, she does not particulary like this person? Discharge Plan Home with Home Health Transportation Arrangement Friend? If patient plan is home with home health Need Dr. Jolly to sign F2F : Has signed face to face form been for Home Health. completed? Medicare Choice List Provided Yes SNF/HH Preference Follow up on 07-26-[address] Jolly agreeable to HH and agency patient has chosen. Whiteboard Updated in Patient Room with Yes name and ext. # of Center Medical Director Review Status In Process Next Review Type Continued Stay Review Pre-Anesthesia Assessment Start: 07/17/19 08:03 Freq: Status: Complete Protocol: Document 07/17/19 08:03 [facility] (Rec: 07/17/19 09:03 [facility] [id number]) Pre-Anesthesia Assessment PAC Comment Unable to schedule PAC phone assessment, chart review only Patient Information Reviewed Via Chart Review Diagnostic Results CBC,EKG,Other Comment Outside CBC, BUN/EKG scanned to record Primary Care Provider Alexandra Medical Clearance Received Yes Comment PCP clearance scanned to record Primary Language Lithuanian Exercise Physiology Professor Required No Height 162.56 cm Weight 63.503 kg Body Mass Index (BMI) 24.0 Barriers to Learning None Other Aids No Hx Anesthesia Reactions Small airway, pediatric equipment w/prior surgery Anesthesia Review Requested No Ux Developer Designer Yes: Pt has several steps leading into the home, desires d/c to SNF/[facility] Smoking Status Former smoker Tobacco type cigarettes how long ago did patient quit smoking Quit age 37 Pain Present Pain Reported Musculoskeletal Symptoms Back Pain,Numbness,Tingling History of Falling (Recent or History of Yes ) Patient is completely paralyzed or No completely immobile Mental Status Oriented to own ability Is patient on oxygen? No Hx Sleep Apnea No Currently Taking a Beta Susy No Anti-Coagulant Therapy No Has a Sample Maker No Cardiac Testing No Hx Pacemaker/ICD No Pacemaker Rep Required? No Cardiac Clearance Received Not Applicable Comment Hx Nutcracker esophagus Urinary Catheter Present No Hx Urinary Self Catheterization No Diabetes No Patient No Lactating No Marital Status Unknown Lives With none Number of Stairs To Enter/Railing? Pt has several steps leading into the home, desires d/c to SNF Support System Sibling(s) Patient Discharge Plan Description Senior Care Facility/Rehab Comment Pt would [facility]
--- NOTE | 2019-07-25 16:27 | PC.NURSE ---
Addendum entered by Kera Campos R.N. 07/25/19 21:56: Encouraged use of I.S. Pt able to perform to 500. Needs reinforcement. Dressing to back remains intact over incision. Addendum entered by Kera Campos R.N. 07/25/19 18:45: Pt agreeable to removing constricting panty which is tight against dressing to back. Assisted to place hospital pull up while toileting in bathroom. Requires reminder to avoid bending. One assist with walker back to bed. Log rolling technique reinforced. Positioned for comfort with call light within reach. Addendum entered by Kera Campos R.N. 07/25/19 17:23: With inspection of pt's dressing to back, noted pt's own panty very binding @ waist. Discussed this with pt and suggested remove these and wear hospital issue pull up. Pt is resistant to this suggestion at this time, but will reapproach. Orders are to reinforce dressing prn. No drainage noted, but opsite beginning to peel up at edges. Original Note: Pt awake and alert. O.T. has worked with pt and P.T. ambulated pt in hallway approximately 500 feet. Pt requests pain meds following this activity. Rates back pain/incisional pain 4/10 following ambulation. Up in chair with chair alarm in place. Scattered bruises to all extremities. Pt follows commands appropriately. Reports full sensation to BL LE's.
[2019-07-25] MEDS: SENNOSIDES 8.6 MG TABLET 17.2 MG PO (19:49)
[2019-07-25] MEDS: HYDROCODONE/ACET 5/325 TABLET 2 TAB PO (19:49)
[2019-07-25] MEDS: CELECOXIB 200 MG CAPSULE PO (19:49)
[2019-07-25] MEDS: ALPRAZolam 0.5 MG TABLET PO (19:49)
[2019-07-25] MEDS: SODIUM CHLORIDE 0.9% FLUSH 10 ML IV (19:51)
[2019-07-26] VITALS (10 sets, daily range): BP systolic 106–136; BP diastolic 51–59; PULSE 70–88; RESP 16–18; TEMP 36.6–36.9; O2SAT 92–98
[2019-07-26] MEDS: HYDROCODONE/ACET 5/325 TABLET 2 TAB PO ×4 (05:24→20:40)
--- NOTE | 2019-07-26 06:11 | PC.NURSE ---
Patient can become confused,forgetful at times. Remembers surgery, and that she has cute pajamas from [employer] that she wants to put on. Slight drainage to lower edge of dressing. Ambulated well with walker to Bathroom. States she would like miralax in am. Not ordered. She states the senna and stefania are not good for her IBS, and prefers the gentler miralax. Had refused to reposition at mid shift. Denied pain. Then later stated she had 10/10 pain, and no one gave her pain meds. I reminded her that I had offered 2-3 times, and response was no. With pain rating 10, patient had no distress on facial features. Of course medicated her for this scale. Patient was up to look in the mirror to she if she looked all right. She c/o noisy teenagers in her backyard tonight. Forgot she was in the hospital. Was easily cued back to place and situation. Allowed repositioning when back to bed.
--- NOTE | 2019-07-26 07:36 | PM.PNPO.1 ---
Subjective Subjective Date Patient Seen: 07/26/19 Time Patient Seen: 07:36 Interval history: Pain is much worse today now that the epidural has worn off. She has been up and moving with physical therapy and still requiring 1 person assist. Exam Vital Signs (past 8 hours): - 07/26/19 05:22 Temperature 98.2 F Pulse Rate 73 Respiratory Rate 16 Blood Pressure 136/56 L Pulse Oximetry 92 Oxygen Delivery Method Room Air Oxygen Flow Rate 0 Const Orientation: alert and oriented x3 Back/Spine/Pelvis Other: Mild drainage is the base of the dressing. 5/5 motor both lower extremities Objective Labs Result Diagrams: 07/25/19 04:50 07/25/19 04:50 Assessment & Plan Post-op Postoperative Procedures: Procedures Operation Date: 07/24/19 10:15 Actual Procedures Side Surgeon p L2-5 laminectomies, L45 instrumentated fusion Sid Jolly MD Normal postoperative course after multilevel laminectomy and fusion. Continue to mobilize. She will require at least 1 more day hospitalization due to her limited mobility. We are trying to work on arrangements for home health or possibly skilled rehab. However the big limitation is that Medicare changed a TLIF to an outpatient diagnosis code this year which does not routinely qualify for skilled rehab any longer.
[2019-07-26] MEDS: polyethylene glycoL 3350 17 GM POWD.PACK PO (09:20)
[2019-07-26] MEDS: dilTIAZem 30 MG TABLET 60 MG PO ×4 (09:22→20:38)
[2019-07-26] MEDS: OXYBUTYNIN 5 MG ER TAB 20 MG PO ×2 (09:22→20:37)
[2019-07-26] MEDS: FLUoxetine 20 MG CAPSULE 40 MG PO (09:22)
[2019-07-26] MEDS: estradioL 1 MG TABLET 2 MG PO (09:23)
[2019-07-26] MEDS: MEDROXYPROGESTERONE ACETATE 2.5 MG TABLET 5 MG PO (09:23)
[2019-07-26] MEDS: SODIUM CHLORIDE 0.9% FLUSH 10 ML IV ×2 (09:23→19:11)
--- NOTE | 2019-07-26 11:32 | OT.IP.TRT ---
Current Diagnoses Unilateral primary osteoarthritis, right hip (07/24/19) Spondylolisthesis, lumbar region (07/24/19) Spinal stenosis, lumbar region with neurogenic claudication (07/24/19) Surgery Performed Operation Date: 07/24/19 10:15 Actual Procedures p L2-5 laminectomies, L45 instrumentated fusion - Sid Jolly MD Occupational Therapy Treatment Note M2 OT-IP Current Condition Start: 07/25/19 16:44 Freq: Status: Active Protocol: Document 07/25/19 15:43 PJM (Rec: 07/25/19 17:04 PJM [id number]) Occupational Therapy Current Condition Current Condition Evaluation Date 07/25/19 Treatment Diagnosis decreased self care, mobility s/p L2-5 lami with L4-5 TLIF Diagnosis Onset Date 07/24/19 Post Operative Precautions Lumbar Precautions Log Roll,No Twisting,Limit Bending,Lifting Restriction of 10 lbs,Gait Belt above Incisional Area M3 OT- IP Subjective and Pain Start: 07/25/19 16:44 Freq: Status: Active Protocol: Document 07/26/19 11:32 PJM (Rec: 07/26/19 17:28 PJM [id number]) OT- Subjective Occupational Therapy Visit Type Type Treatment Note Visit Start Time 10:54 Visit Stop Time 11:32 Total Visit Minutes 38 Occupational Therapy Visit Comments Patient Comments It's really hard to get out of this bed. Patient/Caregiver Goals to have less back pain and go home to see her dogs+ OT Pain Assessment Pain When Pain Assessed After Treatment Pain Present Pain Present Pain Reported Location Back Intensity 3 Scale Used Numeric (1 - 10) Description Aching,Acute M4 OT- IP ADL's Start: 07/25/19 16:44 Freq: Status: Active Protocol: Document 07/26/19 11:32 PJM (Rec: 07/26/19 17:28 PJ [id number]) OT ADL-Dressing General Eval Lower Body Dressing Ability Moderate Assistance Areas Needing Assistance Retrieving/Set-up of Clothing, Pants/Shorts,Socks,Shoes Assistive Devices Dressing Assistive Devices Long Handled Shoe Horn,Electricity Trader ,Sock Aid Comments OT Dressing Comments Provided education and practice re: lower body dressing with steel erector apprentice, sock aid and long shoe horn. Pt needs repetition of information with decreased problem solving noted. Pt needs mod to max verbal cues to avoid both forward bending and twisting. Shoes and slippers pt brought are tight or require bending over to tie shoes or fasten buckle. Pt states she has slip on shoes at home. OT ADL-Toileting Comments OT Toileting Comments did not occur this session OT ADL-Bathing Comments OT Bathing Comments pt agreed to shower tomorrow M6 OT- IP Functional Cognition Start: 07/25/19 16:44 Freq: Status: Active Protocol: Document 07/26/19 11:32 PJM (Rec: 07/26/19 17:28 [facility] [id number]) Cognitive Factors Limiting Selfcare Function Cognitive Ability Level of Alertness Alert Attention Span Ability Capable of Focused Attention, Capable of Sustained Attention Memory Description Short Term Impaired Safety Awareness Decreased Recall of Precautions,Decreased Ability to Apply Precautions, Underestimates Need for Assistance Problem Solving Ability Unable to Identify Errors, Needs Assist to Identify Solutions Executive Function Ability Unable to Remember Details Cognitive Comments Cognitive Assessment Comments Pt needs mod to max cues to follow lumbar precautions during functional tasks and problem solve adapted self care tasks. She has decreased insight and underestimates need for assistance at home. She requires repetition of new information. M7 OT- IP Mobility and Balance Start: 07/25/19 16:44 Freq: Status: Active Protocol: Document 07/26/19 11:32 PJM (Rec: 07/26/19 17:28 [facility] [email or web address]) OT- Bed Mobility Assessment Rolling Type of Rolling Roll to Right Level of Assistance Contact Guard Assistance,1 Person Assistance Supine to Sit Supine to Sit Assist Minimal Assistance,1 Person Assistance Scooting Scooting to Edge of Bed Standby Assistance OT-Transfer Assessment Sit to and From Stand Sit to and from Stand Contact Guard Assistance,1 Person Assistance Transfers Transfer Ability Contact Guard Assistance,1 Person Assistance Technique Transfer Destination Chair Transfer Technique Stand Step Pivot Devices Transfer Assistive Devices Gait Belt,Front Wheeled Walker Comments Mobility Comments Pt needs max cues for log roll technique. OT- Gait Assessment Comments Gait Ability Comments see P.T. notes OT- Balance Assessment Sitting Balance and Reactions Static Sitting Balance Ability Good Dynamic Sitting Balance Ability Good Standing Balance and Reactions Static Standing Balance Ability Good Dynamic Standing Balance Ability Fair Comments Other Balance Tests/Deviations/Treatment during lower body dressing : M M9 OT- IP Assessment and Plan Start: 07/25/19 16:44 Freq: Status: Active Protocol: Document 07/26/19 11:32 PJM (Rec: 07/26/19 17:28 PJM [id number]) OT Summary Assessment and Plan Summary OT Impairments Pain,Strength,Balance, Functional Cognition, Functional Mobility,Grooming, Dressing,Toileting,Bathing, Toilet Transfers,Shower Transfers,Activity Tolerance Progress Towards Goals Slow Progress due to Activity Tolerance,Slow Progress due to Cognition Assessment Summary Pt continues to require mod to max verbal cues to adhere to lumbar spine precautions during all self care and functional mobility. She needs CGA to min assist with getting out of bed and transfer to chair. She has decreased insight and underestimates need for assistance at home. She requires repetition of new information and assist to problem solve adapted self care techniques. P.T. has not yet cleared pt for independent ambulation and pt currently needs assist during all waking hours for safety during all mobility and self care tasks. Goals Grooming Goal Independent Dressing Goal Independent,Long Handled Shoe Horn,Electricity Trader,Sock Aid Toileting Goal Independent,Toilet Paper Aid Bathing Goal Standby Assistance Toilet Transfer Goal Independent,Raised Toilet Seat ,Toilet Safety Frame Shower Transfer Goal Contact Guard Assistance Patient/Caregiver Education Goal Demonstrate Post-Op Precautions,Demonstrate Energy Conservation and Pacing OT-Other Goals Grooming to be done standing at sink with good body mechanics and safety awareness . Days to Meet Goals 3 Frequency of Treatment Frequency Of Treatment Once a Day Treatment Plan OT Treatment Plan ADL Training,Functional Mobility,Patient/Family Education,Discharge Planning Discharge Recommendations OT Discharge Recommendations Home with 10/01 Assist,Home Health, vs SNF Rehab Transportation Needs at Discharge Private Vehicle
--- NOTE | 2019-07-26 11:58 | PT.IPTN ---
Current Diagnoses Unilateral primary osteoarthritis, right hip (07/24/19) Spondylolisthesis, lumbar region (07/24/19) Spinal stenosis, lumbar region with neurogenic claudication (07/24/19) Surgery Performed Operation Date: 07/24/19 10:15 Actual Procedures p L2-5 laminectomies, L45 instrumentated fusion - Sid Jolly MD Physical Therapy Treatment Note M2 PT-IP Current Condition Start: 07/24/19 17:26 Freq: NEEDED Status: Active Protocol: Document 07/25/19 09:40 HH (Rec: 07/25/19 11:04 [id number]) Physical Therapy Current Condition Current Condition Evaluation Date 07/25/19 Treatment Diagnosis L2-5 Laminectomies, L4-L5 TLIF , difficulty in walking, poor balance Onset Date 07/24/19 Precautions Lumbar Precautions Log Roll,No Twisting,Limit Bending,Lifting Restriction of 10 lbs,Gait Belt above Incisional Area Weight Bearing Status Weight Bearing Status Weight Bear as Tolerated M3 PT-IP Subjective Start: 07/24/19 17:26 Freq: NEEDED Status: Active Protocol: Document 07/26/19 11:35 SP (Rec: 07/26/19 12:23 SP [id number]) Subjective Physical Therapy Visit Type Type Treatment Note Visit Start Time 11:35 Visit Stop Time 11:58 Total Visit Minutes 23 Number of DIRECTOR INVESTOR RELATIONS Visits 2 Physical Therapy Visit Comments Patient Comments My legs are bothersome, back hurting just sitting here but gets worse when lays down. Therapy Pain Assessment Pain When Pain Assessed During Mobility Pain Present Pain Present Pain Reported Location Back Intensity 4 Scale Used Numeric (1 - 10) Pain Management Techniques Re-positioning,Timing of Activity with Medications M4 PT-IP Mobility and Gait Start: 07/24/19 17:26 Freq: NEEDED Status: Active Protocol: Document 07/26/19 11:35 SP (Rec: 07/26/19 12:23 SP [id number]) PT-Bed Mobility Assessment Rolling Type of Rolling Roll to Left Level of Assist Contact Guard Assistance Supine to Sit Supine to Sit Moderate Assistance,1 Person Assistance Sit to Supine Sit to Supine Moderate Assistance PT-Transfer Assessment Sit to and From Stand Sit to and from Stand Contact Guard Assistance,Use of Upper Extremities Equipment Transfer Assistive Device Gait Belt,Front Wheeled Walker Transfers Transfer Destination Bed Transfer Technique ambulated with FWW Transfer Ability Level of Assist Contact Guard Assistance,Use of Upper Extremities Comments Mobility Comments Pt just finished working with OT when arrived. Pt required CGA and max cuing for upright posture and proper hand placement to push from chair to transition to standing while maintaining spinal precautions for no trunk bending and reaching back prior to sitting for safety when returned from a walk. Completed sitting to supine with education on spinal alignment and no twisting precautions, required Mod A for suupport of BLe into bed and cuing for sequencing L log roll on to back with legs together, tends to dissociate upper/lower body. Pt had call light and all needs inreach when left. Asked student teaching coordinator to assist arm bed when left with verbal confirmation . Gait Assessment Gait Gait Assistance Required: Contact Guard Assist,1 Person Assist Distance (Feet) 136 Able to Maintain Weight Bearing Status Yes During Gait Assistive Devices Assistive Device Gait Belt,Front Wheeled Walker Orthotic/Prosthetic Devices or Brace: No Gait Deviations General Gait Pattern Antalgic,Decreased Stride Length,Decreased Feet Clearance,Flexed Trunk,Narrow Based Gait Factors Limiting Gait Function Factors Limiting Gait Function Decreased Activity Tolerance, Decreased Strength,Difficulty Following Directions, Incoordination,Limited Range of Motion,Poor Balance,Poor Safety Awareness Comments Gait Comments Pt required decreased assist CGA during gait but continued to required Max cuing for slow pacing, increased stride length and foot clearance to decrease scuffing foot placement BLE with minimal improvement. Educated spinal alignment during gait and stop /pivot feet to turn full trunk and BLE to look when someone talks to her from the side and not twist demonstrated. Pt also did twisting when flexed forward to look in the mirror before leaving room. Stair Climbing Assessment Comments Stair Climbing Comments Did not assess this am, will do in pm today. PT-Balance Assessment Sitting Balance and Reactions Static Sitting Balance Ability Good Dynamic Sitting Balance Ability Good Standing Balance and Reactions Static Standing Balance Ability Good Dynamic Standing Balance Ability Fair Device Used FWW M5 PT-IP Objective Assessments Start: 07/24/19 17:26 Freq: NEEDED Status: Active Protocol: Document 07/25/19 09:40 (Rec: 07/25/19 11:04 [email or web address]) Orientation Orientation/Cognition Level of Alertness Alert Orientation Name,Age,Birthday,Month,Date, Year,Day of Week,Place, Situation Language Function Ability Hard of Hearing Safety Awareness Decreased Safety Awareness Memory Description Short Term Impaired Comments She does not recall post op precautions and appear to have flat affect. Pt often needs cues for her current task and behave slightly impulsive. Gross Range of Motion Upper Extremity ROM Assessment Within Functional Limits Lower Extremity ROM Assessment Within Functional Limits Strength Upper Extremity Strength Assessment Within Functional Limits Lower Extremity Strength Assessment Bilaterally Impaired Hip 4-/5 Knee 4-/5 Ankle 4-/5 Sensation Assessment Sensation Gross Sensation Right LE Impaired,Left LE Impaired Light Touch Impaired Sensation Description Numbness Comments Sensation Comments Pt described decreased sensation to LT distal worse than proximal M6 PT-IP Treatment Start: 07/24/19 17:26 Freq: NEEDED Status: Active Protocol: Document 07/26/19 11:35 SP (Rec: 07/26/19 12:23 SP [id number]) Physical Therapy Treatment Exercises Exercises Ankle Pumps,Gluteal Sets,Quad Sets,Heel Slides,Supine Hip Abduction Education Education Provided Precautions,Weight Bearing Status,Post-Op Packet,Safety M7 PT-IP Assessment and Plan Start: 07/24/19 17:26 Freq: NEEDED Status: Active Protocol: Document 07/26/19 11:35 SP (Rec: 07/26/19 12:23 SP [id number]) PT Summary Assessment and Plan Potential Rehabilitation Potential Fair Status of Condition at Evaluation Evolving Summary Impairments Pain,ROM,Strength,Balance,Tone ,Cognition,Bed Mobility, Transfers,Gait,Activity Tolerance Assessment Summary See mobility comments. Pt required CGA during gait and transfer using FWW with cuing for proper hand placement and positioning of FWW while maintaining spinal precautions , no twisting. Required Mod- Max cuign for safety proepr hand placement and gait phases with slow upright pacing for improved foot clearance heel toe and stride to decrease foot scuffing floor. DIRECTOR INVESTOR RELATIONS discussed with patient recommend someone to assist and be with her when in standing and with her at all times for safety, includign cuing for maintaining spinal precautions. At this time recommending / with home health or SNF for discharge plan secondary to assistnace and safety cuing. Goals Bed Mobility Goal Standby Assistance Transfer Goal Standby Assistance,Front Wheeled Walker Gait Goal Standby Assistance,Front Wheel Walker Gait Distance 500 Other Goals 3 DENISE with R rail 1 DENISE from garage without rail to feed her dog. Days to Meet Goals 10 Frequency of Treatment Frequency Of Treatment Twice a Day Treatment Plan Physical Therapy Treatment Plan Bed Mobility Training,Transfer Training,Gait Training, Therapeutic Exercise,Balance Retraining,Post Op Education, Discharge Planning,Hot or Cold Pack,Neuromuscular Re-ed Other Recommendations and Next Treatment log roll Focus review post op precautions 1 step with SPC or fWW and 3 stair mgt RHR with SPC LUE mobility as aleksey with FWW Recommendations To Nursing Amount of Assist Needed 1 Person Assist Discharge Recommendations PT Discharge Recommendations Home with 10/01 Assist,Home Health,SNF Rehab Transportation Needs at Discharge Private Vehicle
--- NOTE | 2019-07-26 17:05 | PT-IP ANOTE ---
Pt declined PT in afternoon x2 attempts stating both my legs are hurting, I just cant' to anything now. RETAIL MAINTENANCE TECHNICIAN discussed amount of assistance needed to assist with mobility and patient agreed but is better than yesterday. RETAIL MAINTENANCE TECHNICIAN suggested asking son if could come visit earlier to assist her at home and patient stated could ask or maybe her house keeper could help but not sure, I wish and planned to go to a nursing facility to get stronger.
[2019-07-26] MEDS: hydrOXYzine pamoate 25 MG CAPSULE PO (17:25)
--- NOTE | 2019-07-26 18:08 | PC.NURSE ---
Addendum entered by Kera Campos R.N. 07/26/19 22:58: Pt's bed alarm sounds. Staff attend quickly. Pt is sitting upright on edge of bed and was instructed not to attempt out of bed without staff assistance. Pt states wasn't going to attempt to do so. One assist with walker to bathroom to void and returned to bed. States abdominal pain resolved and leg/back pain improved. Positioned onto right side in bed with pillow behind back and between knees. Declines offer for ice to back. Bed alarm in place. Addendum entered by Kera Campos R.N. 07/26/19 20:51: Invited pt to use I.S. and handed device to pt. Pt does not accept this and states I already did. States able to use to 500. Afebrile. Pain meds as now awake and conversant. States spasms 9/10. Addendum entered by Kera Campos R.N. 07/26/19 20:21: Pt returned to bed while this senior medical writer was at dinner. BL scd's replaced. Resting quietly with eyes closed without signs of distress or discomfort. Addendum entered by Kera Campos R.N. 07/26/19 19:49: One assist to transfer from bed to standing to ambulate to toilet. Up in recliner after toileting. Chair alarm in place. Pt's iv to left ac leaks with flush. Dressing changed. Unable to draw blood. Discussed with pt restarting iv in new location. Pt refuses. Dressing to back as per last evening shift. Distal aspect with small amount shadowy drainage contained within dressing. Edges of tegaderm rolling, but dressing does cover incision. Pt encouraged to call for needs. Original Note: Pt wakens easily to voice. Set up for evening meal and given vistaril to manage complaint of BL LE pain. Admits to full sensation to BL LE's. Making phone calls while in bed. Did decline to move to chair for evening meal.
[2019-07-26] MEDS: SENNOSIDES 8.6 MG TABLET 17.2 MG PO (20:39)
[2019-07-26] MEDS: CELECOXIB 200 MG CAPSULE PO (20:40)
[2019-07-26] MEDS: GABAPENTIN 300 MG CAPSULE PO (20:40)
[2019-07-26] MEDS: ALPRAZolam 0.5 MG TABLET PO (20:50)
[2019-07-27] VITALS (13 sets, daily range): BP systolic 92–138; BP diastolic 36–94; PULSE 68–76; RESP 15–20; TEMP 36.4–37.1; O2SAT 91–95
[2019-07-27] MEDS: HYDROCODONE/ACET 5/325 TABLET 2 TAB PO (02:47)
--- NOTE | 2019-07-27 06:53 | PC.NURSE ---
I slept hard last night. Pt. was drowsy at the beginning of the shift but is alert and oriented. Around 0400, pt. was disoriented and thought she was in a hotel with a friend to go to a conference. Pt. reoriented. This am, pt. is much more alert and no problem with getting OOB, just need a little assistance and when pt. stood up, she was able to ambulate to the bathroom without difficulty. Drsg. on her back remains in the same condition with scant amt. drainage on the distal part of drsg. CMS is intact.
[2019-07-27] MEDS: dilTIAZem 30 MG TABLET 60 MG PO ×4 (08:08→20:52)
[2019-07-27] MEDS: polyethylene glycoL 3350 17 GM POWD.PACK PO (08:10)
[2019-07-27] MEDS: FLUoxetine 20 MG CAPSULE 40 MG PO (08:10)
[2019-07-27] MEDS: estradioL 1 MG TABLET 2 MG PO (08:11)
[2019-07-27] MEDS: MEDROXYPROGESTERONE ACETATE 2.5 MG TABLET 5 MG PO (08:11)
[2019-07-27] MEDS: OXYBUTYNIN 5 MG ER TAB 20 MG PO ×2 (08:11→20:54)
[2019-07-27] MEDS: SODIUM CHLORIDE 0.9% FLUSH 10 ML IV ×3 (08:12→22:11)
--- NOTE | 2019-07-27 09:19 | P.PN_ITS ---
Subjective Subjective Date Patient Seen: 07/27/19 Time Patient Seen: 09:19 Interval history: Pain in the back is more manageable, but her legs are very sensitive. It hurts to touch them or move them. This is bothering her more than anything else. She also has stomach discomfort Exam Vital Signs (past 8 hours): - 07/27/19 03:04 07/27/19 08:00 07/27/19 08:08 Temperature 97.6 F 97.9 F Pulse Rate 68 70 Respiratory Rate 16 16 Blood Pressure 92/36 L 101/51 L 101/51 L Pulse Oximetry 93 92 Oxygen Delivery Method Room Air Oxygen Flow Rate 0 Const Orientation: alert and oriented x3 GI Other: +bowel sounds, abdominal distension Back/Spine/Pelvis Other: CDI. 5/5 motor both lower extremities Objective Labs Result Diagrams: 07/25/19 04:50 07/25/19 04:50 Assessment & Plan Post-op Postoperative Procedures: Procedures Operation Date: 07/24/19 10:15 Actual Procedures Side Surgeon p L2-5 laminectomies, L45 instrumentated fusion Sid Jolly MD I think the abdominal pain is most likely related to her irritable bowel and all the medication she has been getting. With her leg pain, I'm going to give her some IV steroids to see if we can calm this down. Plan for senior living, most likely looking at tomorrow after the IV steroids.
--- NOTE | 2019-07-27 09:23 | DI.US.S_ITS ---
PROCEDURE: US PERIPH VENOUS LOW EXTREM BI INDICATIONS: BILATERAL LOWER EXTREMITY PAIN. EVALUATE FOR DVT. TECHNIQUE: Real-time imaging, as well as color and pulse Doppler interrogation, were performed of the deep veins of both legs from the inguinal ligament to the popliteal fossa. COMPARISON: None. FINDINGS: Right: The common femoral, femoral and popliteal veins are normally compressible, and free of intraluminal thrombus. Color and pulse Doppler demonstrate normal phasic intravascular flow. There is normal augmentation response to distal compression maneuver. Left: The common femoral, femoral and popliteal veins are normally compressible, and free of intraluminal thrombus. Color and pulse Doppler demonstrate normal phasic intravascular flow. There is normal augmentation response to distal compression maneuver. IMPRESSION: Negative bilateral lower extremity duplex ultrasound for DVT. Dictated by: Nolberto Reyes M.D. on 07/27/2019 at 10:38 Approved by: Nolberto Reyes M.D. on 07/27/2019 at 10:38
--- NOTE | 2019-07-27 09:26 | P.DS_ITS ---
History of Present Illness History of Present Illness Date Patient Seen: 07/29/19 Time Patient Seen: 08:36 Chief complaint: [id number] Narrative: 78-year-old female with back pain and leg pain and numbness. She'd failed conservative management with therapy and injections. Discharge Providers Provider Date of admission: 07/24/19 08:42 Discharge Date: 07/29/19 Primary care physician: Rola Rao DO Consults: 07/24/19 16:48 Consult to Occupational Therapy Evaluate & Treat Comment: Physician Instructions: Evaluate and treat Consult to Physical Therapy Evaluate & Treat Comment: Physician Instructions: Evaluate and Treat Discharge provider: Sid Jolly MD Summary Hospital Course Discharge Diagnosis: Lumbar stenosis with radiculopathy Lumbar spondylolisthesis Hospital Course: She was brought to the operating room on 07/24/2019 where she underwent a L2 through 5 laminectomy with an instrumented fusion, TLIF, at L4-5. Postoperatively she had difficulty with pain control but this gradually began getting better. She was slow to mobilize and requiring assistance with physical therapy. She has a history of irritable bowel and was having abdominal pain, most likely related to the medications she'd been getting for bowel mobility. She began having increasing pain in the legs and was given IV steroids to work on this. This helped somewhat. Ultrasound of the legs showed no evidence of DVT. CT of the lumbar spine was also obtained which showed a widely decompressed canal with no evidence of postoperative hematoma or hardware complications. Her legs were doing better by date of discharge. She has had almost no back pain through the majority of this. Exam Vital Signs (past 8 hours): - 07/27/19 03:04 07/27/19 08:00 07/27/19 08:08 Temperature 97.6 F 97.9 F Pulse Rate 68 70 Respiratory Rate 16 16 Blood Pressure 92/36 L 101/51 L 101/51 L Pulse Oximetry 93 92 Oxygen Delivery Method Room Air Oxygen Flow Rate 0 Const Orientation: alert and oriented x3 Back/Spine/Pelvis Other: CDI. 5/5 motor both lower extremities Objective Labs Result Diagrams: 07/25/19 04:50 07/25/19 04:50 Discharge Plan Discharge Plan Patient Disposition: [facility] Other facility: [facility] Under care of provider: Facility physician Consult as needed: Dental, Hearing, Mental health, Podiatry and Vision Discharge comment: Follow-up in 1.5 weeks Discharge orders & Medications Prescriptions: New hydrocodone-acetaminophen 5-325 mg Tablet 1 tab PO Q4HR PRN (Reason: Pain, Moderate (4-6)) Qty: 30 RF: 0 hydroxyzine pamoate 25 mg Capsule 25 mg PO Q4HR PRN (Reason: spasms) Qty: 20 RF: 0 Continued oxybutynin chloride 10 mg Tablet Extended Release 24hr 20 mg PO BID RF: 0 alprazolam 0.5 mg Tablet 0.5 mg PO BEDTIME PRN (Reason: Anxiety) RF: 0 estradiol [Estrace] 2 mg Tablet 2 mg PO DAILY RF: 0 fluoxetine 20 mg Capsule 40 mg PO DAILY RF: 0 Prolia 60 mg/mL Syringe 60 mg SUBCUT [id number] RF: 0 medroxyprogesterone 5 mg Tablet 5 mg PO DAILY RF: 0 diltiazem HCl 60 mg Tablet 60 mg PO QID RF: 0 diphenoxylate-atropine [Lomotil] 2.5-0.025 mg Tablet 1 tab PO DAILY PRN (Reason: Diarrhea) RF: 0 Follow up/Referrals: Rola Rao DO [Primary Care Provider] - Discharge Health Status Multidrug resistant organism: No MDRO Precautions: [place] Diet/Activity/Treatments Diet: Diet as Tolerated Liquid consistency: Normal/Thin Food texture: Regular Activity: Limited BLT, 10 lb maximum lift Skin/Wound/Dressing Care Report to your healthcare provider any signs of infection, such as:: chills, fever and night sweats Dressing: May change dressing and shower on 07/29/2019 as needed. Replaced dressing when done. Special Rehabilitation Services Reason for rehabilitation: Post-operative therapy Rehab type: Physical therapy and Occupational therapy Visit Report/Discharge Packet Instructions: DI for Prescription Opioid Use, DI for Transforaminal Lumbar Interbody Fusion Stand Alone Forms: Surgery Discharge Discharge Data Primary Care Provider: Rola Rao
[2019-07-27] MEDS: HYDROCODONE/ACET 5/325 TABLET 1 TAB PO ×2 (10:04→17:07)
[2019-07-27] MEDS: DEXAMETHASONE 10 MG/ML VIAL IV (10:05)
--- NOTE | 2019-07-27 10:06 | OT.IP.TRT ---
Current Diagnoses Unilateral primary osteoarthritis, right hip (07/24/19) Spondylolisthesis, lumbar region (07/24/19) Spinal stenosis, lumbar region with neurogenic claudication (07/24/19) Surgery Performed Operation Date: 07/24/19 10:15 Actual Procedures p L2-5 laminectomies, L45 instrumentated fusion - Sid Jolly MD Occupational Therapy Treatment Note M2 OT-IP Current Condition Start: 07/25/19 16:44 Freq: Status: Active Protocol: Document 07/25/19 15:43 PJM (Rec: 07/25/19 17:04 PJM [id number]) Occupational Therapy Current Condition Current Condition Evaluation Date 07/25/19 Treatment Diagnosis decreased self care, mobility s/p L2-5 lami with L4-5 TLIF Diagnosis Onset Date 07/24/19 Post Operative Precautions Lumbar Precautions Log Roll,No Twisting,Limit Bending,Lifting Restriction of 10 lbs,Gait Belt above Incisional Area M3 OT- IP Subjective and Pain Start: 07/25/19 16:44 Freq: Status: Active Protocol: Document 07/27/19 09:51 CGR (Rec: 07/27/19 10:06 CGR [email or web address]) OT- Subjective Occupational Therapy Visit Type Type Treatment Note Visit Start Time 09:12 Visit Stop Time 09:46 Total Visit Minutes 34 Notes Pt agreeable to shower. Occupational Therapy Visit Comments Patient Comments you mean you are going to make me put on my own underwear? OT Pain Assessment Pain When Pain Assessed At Rest Pain Present Pain Present Pain Reported Location Back Intensity 8 Scale Used Numeric (1 - 10) Management Techniques Modification of Treatment,Re- positioning M4 OT- IP ADL's Start: 07/25/19 16:44 Freq: Status: Active Protocol: Document 07/27/19 09:51 CGR (Rec: 07/27/19 10:06 CGR [email or web address]) OT [id number] General Evaluation Self-Feeding Ability Independent Comments OT Self-Feeding Comments Pt finishing breakfast upon OT entering OT ADL-Grooming Comments OT Grooming Comments Unable to perform on this date as ultra sound present to do LE doppler OT ADL-Oral Care Comments Oral Care Comments Unable to perform on this date as ultra sound present to do LE doppler OT ADL-Dressing General Eval Upper Body Dressing Ability Standby Assistance Lower Body Dressing Ability Minimal Assistance Areas Needing Assistance Underpants/Brief Assistive Devices Dressing Assistive Devices Exerciser Comments OT Dressing Comments Pt needed encouragment to attempt underwear using wood repatcher. Pt initially requesting that this short story writer do LB dressing for her. She states that at home she wears sweats and doesn't change clothing because it is easier. OT ADL-Toileting General Evaluation Toileting Ability Standby Assistance Devices Toileting Assistive Devices Grab Bars Comments OT Toileting Comments seated on toilet, pt did not perform perineal hygiene. Unsure if pt did not perform hygiene because she was about to get into the shower. OT ADL-Bathing Bathing Type Bathing Type Shower General Evaluation Bathing Ability Minimal Assistance Areas Needing Assistance Wash/Dry Back,Wash/Dry Lower Extremities Devices Bathing Equipment Hand Held Shower Sprayer, Shower Chair with Arms Comments OT Bathing Comments Pt performed shower in minimal time. Noted that pt did not wash arms and states that she had already perform pericare but did not stand to perform. M5 OT- IP IADL's Start: 07/25/19 16:44 Freq: Status: Active Protocol: Document 07/25/19 15:43 PJM (Rec: 07/25/19 17:04 PJM [email or web address]) OT-Instrumental Activities of Daily Living Deficits IADL Deficits Identified Deficits Home Safety Awareness Awareness of Need for Assistance at Home Good Awareness Ability to Problem Solve Emergency Able to Problem Solve Situations Medication Management Medication Management No Deficits Identified Money Management Money Management No Deficits Identified Meal Preparation Meal Preparation No Deficits Identified Meal Preparation Comments Pt plans to get Meals on Wheels; provided education re: carrying items with FWW. Paint Preparer Paint Preparer Caregiver Provides Assist Paint Preparer Comments Pt has expander machine operator to assist PRN M6 OT- IP Functional Cognition Start: 07/25/19 16:44 Freq: Status: Active Protocol: Document 07/27/19 09:51 CGR (Rec: 07/27/19 10:06 CGR [email or web address]) Cognitive Factors Limiting Selfcare Function Cognitive Ability Level of Alertness Alert Patient Orientation Name,Day of Week,Place, Situation Attention Span Ability Capable of Focused Attention, Unable to Sustain Attention Ability to Follow Commands Able to Follow One Step Commands with Increased Time, Able to Follow One Step Commands with Repetition Memory Description No Deficits Noted Safety Awareness Decreased Recall of Precautions,Decreased Ability to Apply Precautions, Underestimates Need for Assistance Problem Solving Ability Unable to Identify Errors, Needs Assist to Identify Solutions Executive Function Ability Unable to Hold Focus Abstract Thinking Ability Unable to Be Adaptable in Thinking,Unable to Apply Concepts to New Surroundings Cognitive Comments Cognitive Assessment Comments Pt may benefit from formal cognitive assessment if agreeable. M7 OT- IP Mobility and Balance Start: 07/25/19 16:44 Freq: Status: Active Protocol: Document 07/27/19 09:51 CGR (Rec: 07/27/19 10:06 CGR [email or web address]) OT- Bed Mobility Assessment Rolling Type of Rolling Log Rolling Level of Assistance Moderate Assistance Supine to Sit Supine to Sit Assist Moderate Assistance Sit to Supine Sit to Supine Assist Moderate Assistance Scooting Scooting to Edge of Bed Minimal Assistance OT-Transfer Assessment Sit to and From Stand Sit to and from Stand Contact Guard Assistance Transfers Transfer Ability Contact Guard Assistance Technique Transfer Destination Bed,Shower Stall,Toilet Transfer Technique Stand Step Pivot Devices Transfer Assistive Devices Gait Belt,Front Wheeled Walker Comments Mobility Comments Pt requesting to ambulate back to bed without walker. Pt in hunched position holding onto therapist. Unsafe without walker. OT- Balance Assessment Sitting Balance and Reactions Static Sitting Balance Ability Good Dynamic Sitting Balance Ability Fair M8 OT- IP Objective Assessments Start: 07/25/19 16:44 Freq: Status: Active Protocol: Document 07/25/19 15:43 PJM (Rec: 07/25/19 17:04 PJM [id number]) OT Gross Range of Motion Upper Extremity Range of Motion Assessment Left Impaired ROM Impairments Pt reports L: rotator cuff tear and self limtis scaption to 90 degrees due to pain OT Strength Upper Extremity Strength Assessment Within Functional Limits OT- Coordination Assessment Comments Coordination Comments BUE WFL OT-Muscle Tone Assessment Muscle Tone WNL Yes OT Sensation Assessment Comments Summary Comments BUE WNL per pt Edema Edema Absent M9 OT- IP Assessment and Plan Start: 07/25/19 16:44 Freq: Status: Active Protocol: Document 07/27/19 09:51 CGR (Rec: 07/27/19 10:06 CGR [email or web address]) OT Summary Assessment and Plan Potential Rehabilitation Potential Good Analytic Complexity at Evaluation Low Summary OT Impairments Pain,Balance,Functional Cognition,Functional Mobility, Grooming,Dressing,Toileting, Bathing,Toilet Transfers, Shower Transfers,Activity Tolerance Progress Towards Goals Slow Progress due to Pain,Slow Progress due to Cognition Assessment Summary Pt tolerated session but with poor follow through of back precautions. 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 Concern for pt's hygiene at home as pt states that she changes clothing minimally because it is so difficult. Pt needed education on use of wood repatcher for LB dressing in this session. Further LB dressing and ADLs at sink not performed d/t ultrasound presents to perform doppler. Pt left supine in bed at end of session, call button within reach, bed fall alarm armed and home appliance tech present. Nursing notified of session. Recommendation for discharge at this time is SNF. Goals Grooming Goal Independent Dressing Goal Independent,Long Handled Shoe Horn,Exerciser,Sock Aid Toileting Goal Independent,Toilet Paper Aid Bathing Goal Standby Assistance Toilet Transfer Goal Independent,Raised Toilet Seat ,Toilet Safety Frame Shower Transfer Goal Contact Guard Assistance Patient/Caregiver Education Goal Demonstrate Post-Op Precautions,Demonstrate Energy Conservation and Pacing OT-Other Goals Grooming to be done standing at sink with good body mechanics and safety awareness . Days to Meet Goals 3 Frequency of Treatment Frequency Of Treatment Once a Day Treatment Plan OT Treatment Plan ADL Training,Functional Mobility,Patient/Family Education,Discharge Planning Other Treatment Recommendations and Next ADLs standing and practice of Treatment Focus LB dressing. Discharge Recommendations OT Discharge Recommendations SNF Rehab Transportation Needs at Discharge Private Vehicle
--- NOTE | 2019-07-27 11:26 | PT.IPTN ---
Current Diagnoses Unilateral primary osteoarthritis, right hip (07/24/19) Spondylolisthesis, lumbar region (07/24/19) Spinal stenosis, lumbar region with neurogenic claudication (07/24/19) Surgery Performed Operation Date: 07/24/19 10:15 Actual Procedures p L2-5 laminectomies, L45 instrumentated fusion - Sid Jolly MD Physical Therapy Treatment Note M2 PT-IP Current Condition Start: 07/24/19 17:26 Freq: NEEDED Status: Active Protocol: Document 07/25/19 09:40 HH (Rec: 07/25/19 11:04 [email or web address]) Physical Therapy Current Condition Current Condition Evaluation Date 07/25/19 Treatment Diagnosis L2-5 Laminectomies, L4-L5 TLIF , difficulty in walking, poor balance Onset Date 07/24/19 Precautions Lumbar Precautions Log Roll,No Twisting,Limit Bending,Lifting Restriction of 10 lbs,Gait Belt above Incisional Area Weight Bearing Status Weight Bearing Status Weight Bear as Tolerated M3 PT-IP Subjective Start: 07/24/19 17:26 Freq: NEEDED Status: Active Protocol: Document 07/27/19 11:09 KS (Rec: 07/27/19 12:49 KS [id number]) Subjective Physical Therapy Visit Type Type Treatment Note Visit Start Time 11:09 Visit Stop Time 11:26 Total Visit Minutes 17 Number of FORESTRY LABORER Visits 3 Physical Therapy Visit Comments Patient Comments Pt notes that her legs are painful and that she does not feel like moving, but was agreeable after importance of PT was stressed. Therapy Pain Assessment Pain When Pain Assessed At Rest Pain Present Pain Present Pain Reported Location Back Scale Used no number given Pain Management Techniques Re-positioning M4 PT-IP Mobility and Gait Start: 07/24/19 17:26 Freq: NEEDED Status: Active Protocol: Document 07/27/19 11:09 KS (Rec: 07/27/19 12:49 KS [id number]) PT-Bed Mobility Assessment Rolling Type of Rolling Roll to Right Level of Assist Moderate Assistance,1 Person Assistance Supine to Sit Supine to Sit Moderate Assistance,1 Person Assistance Scooting Scooting to Edge of Bed Contact Guard Assistance PT-Transfer Assessment Sit to and From Stand Sit to and from Stand Minimal Assistance,1 Person Assistance,Use of Upper Extremities Equipment Transfer Assistive Device Gait Belt,Front Wheeled Walker Orthotic/Prosthetic Devices or Brace: No Transfers Transfer Destination Bed Transfer Technique ambulated with FWW Transfer Ability Level of Assist Minimal Assistance,1 Person Assistance,Use of Upper Extremities Comments Mobility Comments Pt was sup in bed upon arrival from therapy. Pt could recall 2/3 precautions (no bending, no twisting). Pt needed mod cues for logroll sequencing, and Mod A for sidelying to sit . CGA for scooting EOB. Min A and max cues to push up from bed when standing w/ FWW. Pt then ambulated w/ FWW, returned to bed CGA and cues for stand<>sit EOB. Pt then sat EOB for ~3 min w/ good core control waiting for nursing to arrive to change dressing. Pt left in room w/ nursing and all needs in reach . Gait Assessment Gait Gait Assistance Required: Minimum Assistance,1 Person Assist Distance (Feet) 50 Able to Maintain Weight Bearing Status Yes During Gait Assistive Devices Assistive Device Gait Belt,Front Wheeled Walker Orthotic/Prosthetic Devices or Brace: No Gait Deviations General Gait Pattern Antalgic,Decreased Stride Length,Decreased Feet Clearance,Flexed Trunk,Narrow Based Gait Factors Limiting Gait Function Factors Limiting Gait Function Decreased Activity Tolerance, Decreased Strength,Difficulty Following Directions, Incoordination,Limited Range of Motion,Poor Balance,Poor Safety Awareness Comments Gait Comments Pt ambulated ~50 ft w/ Min A and FWW. Pt had frequent buckling of L knee and reported pain when cued for quad activation to straighten knee. Pt had decreased stride length and foot clearance because of pain and weakness. Stair Climbing Assessment Comments Stair Climbing Comments not assessed at this time PT-Balance Assessment Sitting Balance and Reactions Static Sitting Balance Ability Good Dynamic Sitting Balance Ability Good Standing Balance and Reactions Static Standing Balance Ability Fair Dynamic Standing Balance Ability Fair Device Used FWW M5 PT-IP Objective Assessments Start: 07/24/19 17:26 Freq: NEEDED Status: Active Protocol: Document 07/25/19 09:40 (Rec: 07/25/19 11:04 [email or web address]) Orientation Orientation/Cognition Level of Alertness Alert Orientation Name,Age,Birthday,Month,Date, Year,Day of Week,Place, Situation Language Function Ability Hard of Hearing Safety Awareness Decreased Safety Awareness Memory Description Short Term Impaired Comments She does not recall post op precautions and appear to have flat affect. Pt often needs cues for her current task and behave slightly impulsive. Gross Range of Motion Upper Extremity ROM Assessment Within Functional Limits Lower Extremity ROM Assessment Within Functional Limits Strength Upper Extremity Strength Assessment Within Functional Limits Lower Extremity Strength Assessment Bilaterally Impaired Hip 4-/5 Knee 4-/5 Ankle 4-/5 Sensation Assessment Sensation Gross Sensation Right LE Impaired,Left LE Impaired Light Touch Impaired Sensation Description Numbness Comments Sensation Comments Pt described decreased sensation to LT distal worse than proximal M6 PT-IP Treatment Start: 07/24/19 17:26 Freq: NEEDED Status: Active Protocol: Document 07/27/19 11:09 KS (Rec: 07/27/19 12:49 KS [id number]) Physical Therapy Treatment Education Education Provided Precautions,Weight Bearing Status,Post-Op Packet,Safety M7 PT-IP Assessment and Plan Start: 07/24/19 17:26 Freq: NEEDED Status: Active Protocol: Document 07/27/19 11:09 KS (Rec: 07/27/19 12:49 KS [id number]) PT Summary Assessment and Plan Potential Rehabilitation Potential Fair Status of Condition at Evaluation Evolving Summary Impairments Pain,ROM,Strength,Balance,Tone ,Cognition,Bed Mobility, Transfers,Gait,Activity Tolerance Assessment Summary Pt was hesitant to work w/ therapy and recalled 2/3 precautions. Pt was Mod A for logroll to R w/ frequent cues for sequencing and hand placement, Mod A for sidelying to sit. CGA for scooting to EOB, Min A and max cues to push uo from bed for sit<> stand w/ FWW. Min A for ambulation w/ FWW w/ L knee buckling and frequent cues for quad activation. Pt ambulated ~50 ft, returned to room, CGA for stand<>sit and left sitting EOB w/ nursing changing wound dressing. Goals Bed Mobility Goal Standby Assistance Transfer Goal Standby Assistance,Front Wheeled Walker Gait Goal Standby Assistance,Front Wheel Walker Gait Distance 500 Other Goals 3 DENISE with R rail 1 DENISE from garage without rail to feed her dog. Days to Meet Goals 10 Frequency of Treatment Frequency Of Treatment Twice a Day Treatment Plan Physical Therapy Treatment Plan Bed Mobility Training,Transfer Training,Gait Training, Therapeutic Exercise,Balance Retraining,Post Op Education, Discharge Planning,Hot or Cold Pack,Neuromuscular Re-ed Other Recommendations and Next Treatment log roll Focus review post op precautions 1 step with SPC or fWW and 3 stair mgt RHR with SPC LUE mobility as aleksey with FWW Recommendations To Nursing Amount of Assist Needed 1 Person Assist Discharge Recommendations PT Discharge Recommendations SNF Rehab Transportation Needs at Discharge Wheelchair/Cabulance
--- NOTE | 2019-07-27 13:40 | PC.NURSE ---
Pt worked with P.T. and seemed to have difficulty following cues for safe mobilization. Occasionally forgetful and states she has hallucinations at times. Answers questions appropriately and oriented x4. Dressing to back changed to Coversite-no bleeding or redness, staple intact. Pt given Miralax and has agreed to take a suppository which she will administer independently. Pt bed alarm on and Pt agrees to call for assistance as needed.
[2019-07-27] MEDS: BISACODYL 10 MG SUPP PR (13:54)
--- NOTE | 2019-07-27 16:03 | PT.IPTN ---
Current Diagnoses Unilateral primary osteoarthritis, right hip (07/24/19) Spondylolisthesis, lumbar region (07/24/19) Spinal stenosis, lumbar region with neurogenic claudication (07/24/19) Surgery Performed Operation Date: 07/24/19 10:15 Actual Procedures p L2-5 laminectomies, L45 instrumentated fusion - Sid Jolly MD Physical Therapy Treatment Note M2 PT-IP Current Condition Start: 07/24/19 17:26 Freq: NEEDED Status: Active Protocol: Document 07/25/19 09:40 HH (Rec: 07/25/19 11:04 [id number]) Physical Therapy Current Condition Current Condition Evaluation Date 07/25/19 Treatment Diagnosis L2-5 Laminectomies, L4-L5 TLIF , difficulty in walking, poor balance Onset Date 07/24/19 Precautions Lumbar Precautions Log Roll,No Twisting,Limit Bending,Lifting Restriction of 10 lbs,Gait Belt above Incisional Area Weight Bearing Status Weight Bearing Status Weight Bear as Tolerated M3 PT-IP Subjective Start: 07/24/19 17:26 Freq: NEEDED Status: Active Protocol: Document 07/27/19 15:34 KS (Rec: 07/27/19 16:23 KS [id number]) Subjective Physical Therapy Visit Type Type Treatment Note Visit Start Time 15:34 Visit Stop Time 16:03 Total Visit Minutes 29 Number of COLLECTIONS DIRECTOR Visits 4 Physical Therapy Visit Comments Patient Comments Pt agreeable to work with therapy. Therapy Pain Assessment Pain When Pain Assessed At Rest Pain Present Pain Present Pain Reported Location Back Scale Used no number given Pain Management Techniques Apply Cold,Re-positioning M4 PT-IP Mobility and Gait Start: 07/24/19 17:26 Freq: NEEDED Status: Active Protocol: Document 07/27/19 15:34 KS (Rec: 07/27/19 16:23 KS [id number]) PT-Bed Mobility Assessment Rolling Type of Rolling Roll to Right Level of Assist Moderate Assistance,1 Person Assistance Supine to Sit Supine to Sit Moderate Assistance,1 Person Assistance Scooting Scooting to Edge of Bed Contact Guard Assistance PT-Transfer Assessment Sit to and From Stand Sit to and from Stand Contact Guard Assistance,1 Person Assistance,Use of Upper Extremities Equipment Transfer Assistive Device Gait Belt,Front Wheeled Walker Orthotic/Prosthetic Devices or Brace: No Transfers Transfer Destination Chair Transfer Technique ambulated with FWW Transfer Ability Level of Assist Contact Guard Assistance, Minimal Assistance,1 Person Assistance,Use of Upper Extremities Comments Mobility Comments Pt was in bed upon arrival from therapy. Pt recalled 1/3 precautions (no bending) and reminded 2 remaining. Mod A for log roll and sidelying to sit w/ max cues. CGA for scooting to EOB. CGA for sit<> stand w/ FWW and cues to push up from bed. Pt then ambulated w/ FWW and returned to room to sit in chair. CGA and cues for FWW and to reach back for chair when sitting. Pt left in chair w/ all needs in reach and chair alarm on. Gait Assessment Gait Gait Assistance Required: Minimum Assistance,1 Person Assist Distance (Feet) 140 Able to Maintain Weight Bearing Status Yes During Gait Assistive Devices Assistive Device Gait Belt,Front Wheeled Walker Orthotic/Prosthetic Devices or Brace: No Gait Deviations General Gait Pattern Antalgic,Decreased Stride Length,Decreased Feet Clearance,Flexed Trunk,Narrow Based Gait Factors Limiting Gait Function Factors Limiting Gait Function Decreased Activity Tolerance, Decreased Strength,Difficulty Following Directions, Incoordination,Limited Range of Motion,Poor Balance,Poor Safety Awareness Comments Gait Comments Pt ambulated ~140 ft w/ FWW and Min A. Pt continued to have buckling of L knee and stated she was having spasms. Pt has fast, unsteady gait w/ decreased stride length and improper use of FWW. Max cues for quad activation, upright posture, slow pace, and staying inside FWW. Pt is impulsive and slightly argumentative when being told which direction to walk in. Stair Climbing Assessment Comments Stair Climbing Comments not assessed at this time PT-Balance Assessment Sitting Balance and Reactions Static Sitting Balance Ability Good Dynamic Sitting Balance Ability Good Standing Balance and Reactions Static Standing Balance Ability Fair Dynamic Standing Balance Ability Fair Device Used FWW M5 PT-IP Objective Assessments Start: 07/24/19 17:26 Freq: NEEDED Status: Active Protocol: Document 07/25/19 09:40 (Rec: 07/25/19 11:04 [email or web address]) Orientation Orientation/Cognition Level of Alertness Alert Orientation Name,Age,Birthday,Month,Date, Year,Day of Week,Place, Situation Language Function Ability Hard of Hearing Safety Awareness Decreased Safety Awareness Memory Description Short Term Impaired Comments She does not recall post op precautions and appear to have flat affect. Pt often needs cues for her current task and behave slightly impulsive. Gross Range of Motion Upper Extremity ROM Assessment Within Functional Limits Lower Extremity ROM Assessment Within Functional Limits Strength Upper Extremity Strength Assessment Within Functional Limits Lower Extremity Strength Assessment Bilaterally Impaired Hip 4-/5 Knee 4-/5 Ankle 4-/5 Sensation Assessment Sensation Gross Sensation Right LE Impaired,Left LE Impaired Light Touch Impaired Sensation Description Numbness Comments Sensation Comments Pt described decreased sensation to LT distal worse than proximal M6 PT-IP Treatment Start: 07/24/19 17:26 Freq: NEEDED Status: Active Protocol: Document 07/27/19 15:34 KS (Rec: 07/27/19 16:23 KS [id number]) Physical Therapy Treatment Education Education Provided Precautions,Weight Bearing Status,Safety M7 PT-IP Assessment and Plan Start: 07/24/19 17:26 Freq: NEEDED Status: Active Protocol: Document 07/27/19 15:34 KS (Rec: 07/27/19 16:23 KS [id number]) PT Summary Assessment and Plan Potential Rehabilitation Potential Fair Status of Condition at Evaluation Evolving Summary Impairments Pain,ROM,Strength,Balance,Tone ,Cognition,Bed Mobility, Transfers,Gait,Activity Tolerance Assessment Summary Pt was Mod A max cues for logroll and sidelying to sit, CGA for scooting EOB, and CGA for sit<>stand w/ FWW. Min A and max cues during ambulation w/ FWW for FWW management, quad activation, slow pace, and upright posture. Pt returned to room and sat in chair CGA w/ cues. Pt is impulsive and needed frequent cues throughout treatment, expecially ambulation. Goals Bed Mobility Goal Standby Assistance Transfer Goal Standby Assistance,Front Wheeled Walker Gait Goal Standby Assistance,Front Wheel Walker Gait Distance 500 Other Goals 3 DENISE with R rail 1 DENISE from garage without rail to feed her dog. Days to Meet Goals 10 Frequency of Treatment Frequency Of Treatment Twice a Day Treatment Plan Physical Therapy Treatment Plan Bed Mobility Training,Transfer Training,Gait Training, Therapeutic Exercise,Balance Retraining,Post Op Education, Discharge Planning,Hot or Cold Pack,Neuromuscular Re-ed Other Recommendations and Next Treatment log roll Focus review post op precautions 1 step with SPC or fWW and 3 stair mgt RHR with SPC LUE mobility as aleksey with FWW Recommendations To Nursing Amount of Assist Needed 1 Person Assist Discharge Recommendations PT Discharge Recommendations SNF Rehab Transportation Needs at Discharge Wheelchair/Cabulance
[2019-07-27] MEDS: DEXAMETHASONE 4 MG/ML VIAL IV ×2 (16:46→22:11)
--- NOTE | 2019-07-27 18:18 | PC.NURSE ---
Addendum entered by Kera Campos R.N. 07/27/19 22:47: With reminder, pt observed log rolling technique when returning to bed. Positioned onto right side with pillow between knees and behind back. Bed alarm in place. Has refused scd's as states is wearing own compression hose BL. Handed pt I.S. and requested pt perform lung exercises. Pt exhibits poor effort to 500 and puts device down. Addendum entered by Kera Campos R.N. 07/27/19 22:26: Resting quietly in bed but rouses easily to voice. IV steroid administered. Pt up to bathroom with minimal assistance. Moving better this evening shift than past two evening shifts. Mentation has been appropriate and clear this evening. Oriented and cooperative with care. Original Note: Pt ambulatory in hallway with walker with P.T. @ beginning of shift. Now up in recliner. Assist x 1 to bathroom to void. Pt reports pain 9/10 left leg. Reports full sensation to BL LE's. Coversite dressing intact to central mid back with exposed distal steristrips with scant amount shadowy drainage. Pt does have erythema outline where prior surgical dressing existed. No open areas to skin. Pt is impulsive and requires staff assistance to remind and instruct in precautions for TLIF. Prune juice to aid in bowel function. No complaints of abdominal pain.
[2019-07-27] MEDS: MAGNESIUM HYDROXIDE 30 ML UDC PO (20:52)
[2019-07-27] MEDS: ALPRAZolam 0.5 MG TABLET PO (20:53)
[2019-07-27] MEDS: GABAPENTIN 300 MG CAPSULE PO (20:53)
[2019-07-27] MEDS: SENNOSIDES 8.6 MG TABLET 17.2 MG PO (20:53)
[2019-07-28] VITALS (10 sets, daily range): BP systolic 102–127; BP diastolic 54–89; PULSE 64–86; RESP 16–18; TEMP 36.6–37.3; O2SAT 93–97
[2019-07-28] MEDS: DEXAMETHASONE 4 MG/ML VIAL IV ×2 (03:26→08:57)
--- NOTE | 2019-07-28 06:09 | PC.NURSE ---
Addendum entered by Mee Nicole R.N. 07/28/19 06:37: reported some pain in b/l legs; given 1 tab Bailey Pt forgetful this morning/little confused Original Note: Pt doing well. Ambulates well to bathroom with 1p FWW Denies any pain, stating its at a 1 out of 10 at the most. Tele: NSR, BBB
[2019-07-28] MEDS: HYDROCODONE/ACET 5/325 TABLET 1 TAB PO (06:35)
--- NOTE | 2019-07-28 08:05 | DI.CT.S_ITS ---
PROCEDURE: CT LUMBAR SPINE WO CON INDICATIONS: BLE pain TECHNIQUE: Noncontrast 3 mm thick sections acquired from the T12 level to the sacrum. Sagittal and coronal reformats were constructed. For radiation dose reduction, the following was used: automated exposure control. COMPARISON: [facility], CR, XR LUMBAR SPINE 2-3V, 07/24/2019, 12:17. [facility], MR, MR LUMBAR SPINE WITHOUT CONTRAST, 04/16/2019, 7:58. FINDINGS: Image quality: Diagnostic. Bones: There are 5 lumbar-type vertebral bodies. The lowest intervertebral disk space is designated as L5-S1. The vertebral body heights are well-maintained without evidence to suggest an acute compression fracture. The bone mineralization is within normal limits. Postsurgical changes are identified related to an L4-5 discectomy and fusion procedure. Negative body spacer has been placed at this location. There is slight grade 1 anterolisthesis of L4 and L5. The bilateral transpedicular screws are fixed in place by posterior fixation rods, which appear to be appropriately positioned. No hardware fractures or lucencies surrounding the orthopedic screws are evident. There appears to be a small amount of air within the epidural region at the operative site, best appreciated at the right hemilaminotomy defect at L3-4 and near the right L4-5 neural foramen. At least moderate degenerative changes of the lumbar spine are identified. Please note that the intervertebral discs and neural foramina are not well evaluated on CT. There probably are areas of central canal narrowing involved in the lower lumbar spine. Soft tissues: Mild edema within the posterior lower lumbar soft tissues are present. There is a small focus of air identified within the left paracentral soft tissues at the L3 level (image 2, series 8). Aortic atherosclerosis is incidentally noted. Extensive distal colonic diverticulosis is present. Scattered foci of high attenuation are seen within the imaged portions of the stomach and a small bowel loop within the left hemiabdomen. No retroperitoneal adenopathy is identified. Distal colonic diverticulosis is incidentally noted. A peripherally calcified structure within the right pelvis may represent a calcified lymph node or peripherally calcified colonic diverticulum, not adequately evaluated on this study. soft tissues of the imaged abdomen and pelvis are within normal limits. IMPRESSION: 1. Edema and minimal soft tissue air along the posterior lower lumbar region probably is related to recent surgery. There may be minimal epidural air at the operative site. Please correlate clinically to exclude superimposed infection. 2. L4-5 discectomy and fusion. The hardware is intact and appears to be appropriate positioned. 3. No acute fractures. 4. The degree of degenerative changes have not significantly progressed. Dictated by: Rob Siddiqui M.D. on 07/28/2019 at 8:30 Approved by: Rob Siddiqui M.D. on 07/28/2019 at 8:36
--- NOTE | 2019-07-28 08:06 | PM.PNPO.1 ---
Subjective Subjective Date Patient Seen: 07/28/19 Time Patient Seen: 08:06 Interval history: The steroids helped a little bit but she is still complaining of pain in her legs when she stands. Fairly comfortable at rest. She has been up and walking, still with some assist with therapy. Exam Vital Signs (past 8 hours): - 07/28/19 04:15 Temperature 97.8 F Pulse Rate 86 Respiratory Rate 16 Blood Pressure 127/65 Pulse Oximetry 93 Oxygen Delivery Method Room Air Oxygen Flow Rate 0 Const Orientation: alert and oriented x3 Back/Spine/Pelvis Other: CDI. 5/5 motor both lower extremities Objective Labs Result Diagrams: 07/25/19 04:50 07/25/19 04:50 Assessment & Plan Post-op Postoperative Procedures: Procedures Operation Date: 07/24/19 10:15 Actual Procedures Side Surgeon p L2-5 laminectomies, L45 instrumentated fusion Sid Jolly MD she is still having ongoing leg pain. Her ultrasound of her legs was negative for DVT. Steroids helped a little bit. I am going to check a CT scan this morning to make sure there is nothing else going on in her lumbar spine. Anticipate discharge to [facility], arrangements were made for tomorrow.
[2019-07-28] MEDS: dilTIAZem 30 MG TABLET 60 MG PO ×4 (08:55→20:49)
[2019-07-28] MEDS: MEDROXYPROGESTERONE ACETATE 2.5 MG TABLET 5 MG PO (08:56)
[2019-07-28] MEDS: estradioL 1 MG TABLET 2 MG PO (08:56)
[2019-07-28] MEDS: FLUoxetine 20 MG CAPSULE 40 MG PO (08:56)
[2019-07-28] MEDS: OXYBUTYNIN 5 MG ER TAB 20 MG PO ×2 (08:56→20:50)
[2019-07-28] MEDS: polyethylene glycoL 3350 17 GM POWD.PACK PO (08:57)
[2019-07-28] MEDS: SODIUM CHLORIDE 0.9% FLUSH 10 ML IV ×2 (08:58→20:50)
--- NOTE | 2019-07-28 10:57 | PT.IPTN ---
Current Diagnoses Unilateral primary osteoarthritis, right hip (07/24/19) Spondylolisthesis, lumbar region (07/24/19) Spinal stenosis, lumbar region with neurogenic claudication (07/24/19) Surgery Performed Operation Date: 07/24/19 10:15 Actual Procedures p L2-5 laminectomies, L45 instrumentated fusion - Sid Jolly MD Physical Therapy Treatment Note M2 PT-IP Current Condition Start: 07/24/19 17:26 Freq: NEEDED Status: Active Protocol: Document 07/25/19 09:40 HH (Rec: 07/25/19 11:04 [email or web address]) Physical Therapy Current Condition Current Condition Evaluation Date 07/25/19 Treatment Diagnosis L2-5 Laminectomies, L4-L5 TLIF , difficulty in walking, poor balance Onset Date 07/24/19 Precautions Lumbar Precautions Log Roll,No Twisting,Limit Bending,Lifting Restriction of 10 lbs,Gait Belt above Incisional Area Weight Bearing Status Weight Bearing Status Weight Bear as Tolerated M3 PT-IP Subjective Start: 07/24/19 17:26 Freq: NEEDED Status: Active Protocol: Document 07/28/19 10:34 KS (Rec: 07/28/19 11:33 KS [id number]) Subjective Physical Therapy Visit Type Type Treatment Note Visit Start Time 10:34 Visit Stop Time 10:57 Total Visit Minutes 23 Number of PILL COATER Visits 5 Physical Therapy Visit Comments Patient Comments Pt agreeable to work with therapy. Therapy Pain Assessment Pain When Pain Assessed After Treatment Pain Present Pain Present Denied Pain M4 PT-IP Mobility and Gait Start: 07/24/19 17:26 Freq: NEEDED Status: Active Protocol: Document 07/28/19 10:34 KS (Rec: 07/28/19 11:33 KS [id number]) PT-Bed Mobility Assessment Rolling Type of Rolling Roll to Left Level of Assist Contact Guard Assistance,1 Person Assistance Scooting Scooting to Edge of Bed Contact Guard Assistance PT-Transfer Assessment Sit to and From Stand Sit to and from Stand Contact Guard Assistance,1 Person Assistance,Use of Upper Extremities Equipment Transfer Assistive Device Gait Belt,Front Wheeled Walker Orthotic/Prosthetic Devices or Brace: No Transfers Transfer Destination Bed,Toilet Transfer Technique ambulated with FWW Transfer Ability Level of Assist Contact Guard Assistance,1 Person Assistance,Use of Upper Extremities Comments Mobility Comments Pt was in chair upon arrival from therapy. Able to recall 3 /3 precautions today. CGA for scooting to edge of chair, and CGA for sit<>stand w/ FWW w/ cues to push up from chair. Pt then ambulated ~250 ft and request to use toilet upon arrival back to room. CGA for stand<>sit<>stand from toilet w/ FWW and cues to use grab bar. Pt then ambulated back to bed w/ CGA and FWW, sat and performed logroll back into bed CGA. Pt could have benefitted from Min A during logroll, d/t breaking twisting precaution, but she refused assistance. Pt then broke bending and twisting precautions when reaching for phone once supine in bed. Pt left in bed w/ all needs in reach and alarm on. Gait Assessment Gait Gait Assistance Required: Contact Guard Assist,Minimum Assistance,1 Person Assist Distance (Feet) 250 Able to Maintain Weight Bearing Status Yes During Gait Assistive Devices Assistive Device Gait Belt,Front Wheeled Walker Orthotic/Prosthetic Devices or Brace: No Gait Deviations General Gait Pattern Antalgic,Decreased Stride Length,Decreased Feet Clearance,Flexed Trunk,Narrow Based Gait Factors Limiting Gait Function Factors Limiting Gait Function Decreased Activity Tolerance, Decreased Strength,Difficulty Following Directions, Incoordination,Limited Range of Motion,Poor Balance,Poor Safety Awareness Comments Gait Comments Pt ambulated ~250 ft w/ FWW and CGA to Min A. Pt needs frequent cues for slow pace, upright posture, and FWW management. Pt had no leg spasms or knee buckling during ambulation today. Pt has decreased stride length and narrow based gait and would benefit from continued LE strengthening/gait training to improve gait. Stair Climbing Assessment Comments Stair Climbing Comments not assessed at this time PT-Balance Assessment Sitting Balance and Reactions Static Sitting Balance Ability Good Dynamic Sitting Balance Ability Good Standing Balance and Reactions Static Standing Balance Ability Fair Dynamic Standing Balance Ability Fair Device Used FWW M5 PT-IP Objective Assessments Start: 07/24/19 17:26 Freq: NEEDED Status: Active Protocol: Document 07/25/19 09:40 (Rec: 07/25/19 11:04 [email or web address]) Orientation Orientation/Cognition Level of Alertness Alert Orientation Name,Age,Birthday,Month,Date, Year,Day of Week,Place, Situation Language Function Ability Hard of Hearing Safety Awareness Decreased Safety Awareness Memory Description Short Term Impaired Comments She does not recall post op precautions and appear to have flat affect. Pt often needs cues for her current task and behave slightly impulsive. Gross Range of Motion Upper Extremity ROM Assessment Within Functional Limits Lower Extremity ROM Assessment Within Functional Limits Strength Upper Extremity Strength Assessment Within Functional Limits Lower Extremity Strength Assessment Bilaterally Impaired Hip 4-/5 Knee 4-/5 Ankle 4-/5 Sensation Assessment Sensation Gross Sensation Right LE Impaired,Left LE Impaired Light Touch Impaired Sensation Description Numbness Comments Sensation Comments Pt described decreased sensation to LT distal worse than proximal M6 PT-IP Treatment Start: 07/24/19 17:26 Freq: NEEDED Status: Active Protocol: Document 07/28/19 10:34 KS (Rec: 07/28/19 11:33 KS [id number]) Physical Therapy Treatment Education Education Provided Precautions,Weight Bearing Status,Safety M7 PT-IP Assessment and Plan Start: 07/24/19 17:26 Freq: NEEDED Status: Active Protocol: Document 07/28/19 10:34 KS (Rec: 07/28/19 11:33 KS [id number]) PT Summary Assessment and Plan Potential Rehabilitation Potential Fair Status of Condition at Evaluation Evolving Summary Impairments Pain,ROM,Strength,Balance,Tone ,Cognition,Bed Mobility, Transfers,Gait,Activity Tolerance Assessment Summary Pt was CGA for mobility and gait training today, but would still benefit from Min A during logroll to adhere to precautions. Pt needs frequent cues for hand placement during transfers and upright posture, slow pace, and FWW management during ambulation. Pt ambulated ~250ft w/ no knee buckling this treatment and denied pain. Pt able to recall 3/3 precautions when asked today, but did not adhere to precautions once back in bed (bending and twisting to reach for cell phone). Goals Bed Mobility Goal Standby Assistance Transfer Goal Standby Assistance,Front Wheeled Walker Gait Goal Standby Assistance,Front Wheel Walker Gait Distance 500 Other Goals 3 DENISE with R rail 1 DENISE from garage without rail to feed her dog. Days to Meet Goals 10 Frequency of Treatment Frequency Of Treatment Twice a Day Treatment Plan Physical Therapy Treatment Plan Bed Mobility Training,Transfer Training,Gait Training, Therapeutic Exercise,Balance Retraining,Post Op Education, Discharge Planning,Hot or Cold Pack,Neuromuscular Re-ed Other Recommendations and Next Treatment log roll Focus review post op precautions 1 step with SPC or fWW and 3 stair mgt RHR with SPC LUE mobility as aleksey with FWW Recommendations To Nursing Amount of Assist Needed 1 Person Assist Discharge Recommendations PT Discharge Recommendations SNF Rehab Transportation Needs at Discharge Wheelchair/Cabulance
[2019-07-28] MEDS: MAGNESIUM HYDROXIDE 30 ML UDC PO (12:17)
--- NOTE | 2019-07-28 12:49 | PC.NURSE ---
Pt is continent of bladder and bowel.
--- NOTE | 2019-07-28 14:52 | PT.IPTN ---
Current Diagnoses Unilateral primary osteoarthritis, right hip (07/24/19) Spondylolisthesis, lumbar region (07/24/19) Spinal stenosis, lumbar region with neurogenic claudication (07/24/19) Surgery Performed Operation Date: 07/24/19 10:15 Actual Procedures p L2-5 laminectomies, L45 instrumentated fusion - Sid Jolly MD Physical Therapy Treatment Note M2 PT-IP Current Condition Start: 07/24/19 17:26 Freq: NEEDED Status: Active Protocol: Document 07/25/19 09:40 HH (Rec: 07/25/19 11:04 [id number]) Physical Therapy Current Condition Current Condition Evaluation Date 07/25/19 Treatment Diagnosis L2-5 Laminectomies, L4-L5 TLIF , difficulty in walking, poor balance Onset Date 07/24/19 Precautions Lumbar Precautions Log Roll,No Twisting,Limit Bending,Lifting Restriction of 10 lbs,Gait Belt above Incisional Area Weight Bearing Status Weight Bearing Status Weight Bear as Tolerated M3 PT-IP Subjective Start: 07/24/19 17:26 Freq: NEEDED Status: Active Protocol: Document 07/28/19 14:40 KS (Rec: 07/28/19 16:05 KS [id number]) Subjective Physical Therapy Visit Type Type Treatment Note Visit Start Time 14:40 Visit Stop Time 14:52 Total Visit Minutes 12 Number of TROMPER Visits 6 Physical Therapy Visit Comments Patient Comments Pt agreeable to work with therapy. Therapy Pain Assessment Pain When Pain Assessed During Mobility Pain Present Pain Present Denied Pain M4 PT-IP Mobility and Gait Start: 07/24/19 17:26 Freq: NEEDED Status: Active Protocol: Document 07/28/19 14:40 KS (Rec: 07/28/19 16:05 KS [id number]) PT-Bed Mobility Assessment Rolling Type of Rolling Roll to Left Level of Assist Minimal Assistance,1 Person Assistance Supine to Sit Supine to Sit Minimal Assistance,1 Person Assistance Scooting Scooting to Edge of Bed Contact Guard Assistance PT-Transfer Assessment Sit to and From Stand Sit to and from Stand Contact Guard Assistance,1 Person Assistance,Use of Upper Extremities Equipment Transfer Assistive Device Gait Belt,Front Wheeled Walker Orthotic/Prosthetic Devices or Brace: No Transfers Transfer Destination Bed,Chair Transfer Technique ambulated with FWW Transfer Ability Level of Assist Contact Guard Assistance,1 Person Assistance,Use of Upper Extremities Comments Mobility Comments Pt was sup in bed upon arrival from therapy and able to recall 3/3 precautions. Min A and cues for logroll and sidelying to sit. CGA for scooting to edge of bed and sit<>stand w/ FWW. Pt then ambulated and returned to room where she was left at sink w/ OT. Gait Assessment Gait Gait Assistance Required: Contact Guard Assist,Minimum Assistance,1 Person Assist Distance (Feet) 250 Able to Maintain Weight Bearing Status Yes During Gait Assistive Devices Assistive Device Gait Belt,Front Wheeled Walker Orthotic/Prosthetic Devices or Brace: No Gait Deviations General Gait Pattern Antalgic,Decreased Stride Length,Decreased Feet Clearance,Flexed Trunk,Narrow Based Gait Factors Limiting Gait Function Factors Limiting Gait Function Decreased Activity Tolerance, Decreased Strength,Difficulty Following Directions, Incoordination,Limited Range of Motion,Poor Balance,Poor Safety Awareness Comments Gait Comments Pt ambulated ~250 ft w/ FWW and CGA to Min A. Pt continues to need frequent cues for slow pace, FWW management ( stay inside FWW, walk in straight line), and upright posture. Pt has short, quick step length. Encouraged pt to take longer slower steps, but she was not able to perform safely/correctly at this time and had decreased foot clearance and increased knee flexion in stance phase. Stair Climbing Assessment Comments Stair Climbing Comments not assessed at this time PT-Balance Assessment Sitting Balance and Reactions Static Sitting Balance Ability Good Dynamic Sitting Balance Ability Good Standing Balance and Reactions Static Standing Balance Ability Fair Dynamic Standing Balance Ability Fair Device Used FWW M5 PT-IP Objective Assessments Start: 07/24/19 17:26 Freq: NEEDED Status: Active Protocol: Document 07/25/19 09:40 (Rec: 07/25/19 11:04 [id number]) Orientation Orientation/Cognition Level of Alertness Alert Orientation Name,Age,Birthday,Month,Date, Year,Day of Week,Place, Situation Language Function Ability Hard of Hearing Safety Awareness Decreased Safety Awareness Memory Description Short Term Impaired Comments She does not recall post op precautions and appear to have flat affect. Pt often needs cues for her current task and behave slightly impulsive. Gross Range of Motion Upper Extremity ROM Assessment Within Functional Limits Lower Extremity ROM Assessment Within Functional Limits Strength Upper Extremity Strength Assessment Within Functional Limits Lower Extremity Strength Assessment Bilaterally Impaired Hip 4-/5 Knee 4-/5 Ankle 4-/5 Sensation Assessment Sensation Gross Sensation Right LE Impaired,Left LE Impaired Light Touch Impaired Sensation Description Numbness Comments Sensation Comments Pt described decreased sensation to LT distal worse than proximal M6 PT-IP Treatment Start: 07/24/19 17:26 Freq: NEEDED Status: Active Protocol: Document 07/28/19 14:40 KS (Rec: 07/28/19 16:05 KS [id number]) Physical Therapy Treatment Education Education Provided Precautions,Weight Bearing Status,Safety M7 PT-IP Assessment and Plan Start: 07/24/19 17:26 Freq: NEEDED Status: Active Protocol: Document 07/28/19 14:40 KS (Rec: 07/28/19 16:05 KS [id number]) PT Summary Assessment and Plan Potential Rehabilitation Potential Fair Status of Condition at Evaluation Evolving Summary Impairments Pain,ROM,Strength,Balance,Tone ,Cognition,Bed Mobility, Transfers,Gait,Activity Tolerance Assessment Summary Pt was CGA to Min A for mobility and gait training today, needing Min A for logroll to adhere to precautions. During 250 ft ambulation, pt needed frequent cues for upright posture, slow pace, and FWW management (staying inside FWW, walking in straight line). Encouraged pt to take longer, slower steps, but she was unsuccessful having decreased stride length and increased knee flexion in stance phase. Pt will benefit from continued bed mobility and LE strengthening to improve safety awareness and level of function. Goals Bed Mobility Goal Standby Assistance Transfer Goal Standby Assistance,Front Wheeled Walker Gait Goal Standby Assistance,Front Wheel Walker Gait Distance 500 Other Goals 3 DENISE with R rail 1 DENISE from garage without rail to feed her dog. Days to Meet Goals 10 Frequency of Treatment Frequency Of Treatment Twice a Day Treatment Plan Physical Therapy Treatment Plan Bed Mobility Training,Transfer Training,Gait Training, Therapeutic Exercise,Balance Retraining,Post Op Education, Discharge Planning,Hot or Cold Pack,Neuromuscular Re-ed Other Recommendations and Next Treatment log roll Focus review post op precautions 1 step with SPC or fWW and 3 stair mgt RHR with SPC LUE mobility as aleksey with FWW Recommendations To Nursing Amount of Assist Needed 1 Person Assist Discharge Recommendations PT Discharge Recommendations SNF Rehab Transportation Needs at Discharge Wheelchair/Cabulance
--- NOTE | 2019-07-28 14:54 | OT.IP.TRT ---
Current Diagnoses Unilateral primary osteoarthritis, right hip (07/24/19) Spondylolisthesis, lumbar region (07/24/19) Spinal stenosis, lumbar region with neurogenic claudication (07/24/19) Surgery Performed Operation Date: 07/24/19 10:15 Actual Procedures p L2-5 laminectomies, L45 instrumentated fusion - Sid Jolly MD Occupational Therapy Treatment Note M2 OT-IP Current Condition Start: 07/25/19 16:44 Freq: Status: Active Protocol: Document 07/25/19 15:43 PJM (Rec: 07/25/19 17:04 PJM [id number]) Occupational Therapy Current Condition Current Condition Evaluation Date 07/25/19 Treatment Diagnosis decreased self care, mobility s/p L2-5 lami with L4-5 TLIF Diagnosis Onset Date 07/24/19 Post Operative Precautions Lumbar Precautions Log Roll,No Twisting,Limit Bending,Lifting Restriction of 10 lbs,Gait Belt above Incisional Area M3 OT- IP Subjective and Pain Start: 07/25/19 16:44 Freq: Status: Active Protocol: Document 07/28/19 15:29 CGR (Rec: 07/28/19 15:37 CGR [email or web address]) OT- Subjective Occupational Therapy Visit Type Type Treatment Note Visit Start Time 14:39 Visit Stop Time 14:54 Total Visit Minutes 15 Notes co-treat with P.T. OT Pain Assessment Pain When Pain Assessed During Mobility Pain Present Pain Present Denied Pain M4 OT- IP ADL's Start: 07/25/19 16:44 Freq: Status: Active Protocol: Document 07/28/19 15:29 CGR (Rec: 07/28/19 15:37 CGR [email or web address]) OT [id number] Comments OT Self-Feeding Comments Pt feeding with IND this AM when OT attempted to see her. OT ADL-Grooming General Evaluation Grooming Ability Standby Assistance Areas Needing Assistance Combing/Brushing Hair,Face Washing Comments OT Grooming Comments Standing at sink OT ADL-Oral Care General Eval Oral Care Ability Minimal Assistance Areas of Assistance Brushing Teeth Comments Oral Care Comments Pt needed verbal cues not to bend with brushing teeth. OT ADL-Dressing Comments OT Dressing Comments Not performed in this session. OT ADL-Toileting General Evaluation Toileting Ability Standby Assistance Devices Toileting Assistive Devices Grab Bars Comments OT Toileting Comments Pt declined to wash hands after toileting. OT ADL-Bathing Comments OT Bathing Comments Not performed in this session. M5 OT- IP IADL's Start: 07/25/19 16:44 Freq: Status: Active Protocol: Document 07/25/19 15:43 PJM (Rec: 07/25/19 17:04 PJM [id number]) OT-Instrumental Activities of Daily Living Deficits IADL Deficits Identified Deficits Home Safety Awareness Awareness of Need for Assistance at Home Good Awareness Ability to Problem Solve Emergency Able to Problem Solve Situations Medication Management Medication Management No Deficits Identified Money Management Money Management No Deficits Identified Meal Preparation Meal Preparation No Deficits Identified Meal Preparation Comments Pt plans to get Meals on Wheels; provided education re: carrying items with FWW. Student Success Coach Student Success Coach Caregiver Provides Assist Student Success Coach Comments Pt has nursing associate to assist PRN M6 OT- IP Functional Cognition Start: 07/25/19 16:44 Freq: Status: Active Protocol: Document 07/27/19 09:51 CGR (Rec: 07/27/19 10:06 CGR [email or web address]) Cognitive Factors Limiting Selfcare Function Cognitive Ability Level of Alertness Alert Patient Orientation Name,Day of Week,Place, Situation Attention Span Ability Capable of Focused Attention, Unable to Sustain Attention Ability to Follow Commands Able to Follow One Step Commands with Increased Time, Able to Follow One Step Commands with Repetition Memory Description No Deficits Noted Safety Awareness Decreased Recall of Precautions,Decreased Ability to Apply Precautions, Underestimates Need for Assistance Problem Solving Ability Unable to Identify Errors, Needs Assist to Identify Solutions Executive Function Ability Unable to Hold Focus Abstract Thinking Ability Unable to Be Adaptable in Thinking,Unable to Apply Concepts to New Surroundings Cognitive Comments Cognitive Assessment Comments Pt may benefit from formal cognitive assessment if agreeable. M7 OT- IP Mobility and Balance Start: 07/25/19 16:44 Freq: Status: Active Protocol: Document 07/28/19 15:29 CGR (Rec: 07/28/19 15:37 CGR [email or web address]) OT- Bed Mobility Assessment Rolling Type of Rolling Log Rolling,Roll to Right Level of Assistance Minimal Assistance Supine to Sit Supine to Sit Assist Minimal Assistance Sit to Supine Sit to Supine Assist Standby Assistance Scooting Scooting to Edge of Bed Contact Guard Assistance OT-Transfer Assessment Sit to and From Stand Sit to and from Stand Contact Guard Assistance Transfers Transfer Ability Contact Guard Assistance Technique Transfer Destination Bed,Toilet Transfer Technique Stand Step Pivot Devices Transfer Assistive Devices Gait Belt,Front Wheeled Walker Comments Mobility Comments Pt with poor maintaining of back precautions for sup to sit but did better when returning to bed. OT- Gait Assessment Gait Gait Assistance Required: Contact Guard Assist Assistive Devices Assistive Device Gait Belt,Front Wheeled Walker Comments Gait Ability Comments Would benefit from min a but pt refused assist with walker. OT- Balance Assessment Sitting Balance and Reactions Static Sitting Balance Ability Good Dynamic Sitting Balance Ability Fair M8 OT- IP Objective Assessments Start: 07/25/19 16:44 Freq: Status: Active Protocol: Document 07/25/19 15:43 PJM (Rec: 07/25/19 17:04 PJM [id number]) OT Gross Range of Motion Upper Extremity Range of Motion Assessment Left Impaired ROM Impairments Pt reports L: rotator cuff tear and self limtis scaption to 90 degrees due to pain OT Strength Upper Extremity Strength Assessment Within Functional Limits OT- Coordination Assessment Comments Coordination Comments BUE WFL OT-Muscle Tone Assessment Muscle Tone WNL Yes OT Sensation Assessment Comments Summary Comments BUE WNL per pt Edema Edema Absent M9 OT- IP Assessment and Plan Start: 07/25/19 16:44 Freq: Status: Active Protocol: Document 07/28/19 15:29 CGR (Rec: 07/28/19 15:37 CGR [email or web address]) OT Summary Assessment and Plan Potential Rehabilitation Potential Good Analytic Complexity at Evaluation Low Summary OT Impairments Pain,Balance,Functional Cognition,Functional Mobility, Grooming,Dressing,Toileting, Bathing,Toilet Transfers, Shower Transfers,Activity Tolerance Progress Towards Goals Slow Progress due to Pain,Slow Progress due to Cognition Assessment Summary Pt tolerated session but with poor follow through of back precautions. Pt is able to state back precautions but needs mod to max verbal cues to maintain back precautions. Pt returned to bed and end of session in prep for enema per nursing request. Call button within reach and bed fall alarm armed. Goals Grooming Goal Independent Dressing Goal Independent,Long Handled Shoe Horn,Elementary Assistant Principal,Sock Aid Toileting Goal Independent,Toilet Paper Aid Bathing Goal Standby Assistance Toilet Transfer Goal Independent,Raised Toilet Seat ,Toilet Safety Frame Shower Transfer Goal Contact Guard Assistance Patient/Caregiver Education Goal Demonstrate Post-Op Precautions,Demonstrate Energy Conservation and Pacing OT-Other Goals Grooming to be done standing at sink with good body mechanics and safety awareness . Days to Meet Goals 3 Frequency of Treatment Frequency Of Treatment Once a Day Treatment Plan OT Treatment Plan ADL Training,Functional Mobility,Patient/Family Education,Discharge Planning Other Treatment Recommendations and Next ADLs standing and practice of Treatment Focus LB dressing. Discharge Recommendations OT Discharge Recommendations SNF Rehab Transportation Needs at Discharge Private Vehicle
--- NOTE | 2019-07-28 16:13 | PC.NURSE ---
Addendum entered by Katalina Caputo R.N. 07/28/19 22:44: Fleet enema admin KS as ordered, moderate amount BM x 1. Continue to refuse SCD's, encouraged to dorsiflex foot while at rest and mobility. Original Note: Samantha shift note: Patient refused SCD while in bed, states does not want to wear them and is wearing compression socks. Discussed in detail importance of SCDs and educated regarding its use. Patient states will consider using them after dinner.
[2019-07-28] MEDS: FLEETS ENEMA 1 EACH PR (19:46)
[2019-07-28] MEDS: GABAPENTIN 300 MG CAPSULE PO (20:50)
[2019-07-29] MEDS: SODIUM CHLORIDE 0.9% FLUSH 10 ML IV ×2 (00:21→09:55)
[2019-07-29 03:00] VITALS: BP 133/68; PULSE 69; RESP 16; TEMP 36.7; O2SAT 96
--- NOTE | 2019-07-29 05:13 | PC.NURSE ---
Pt rested overnight without complaints. Pt up to BR and denied pain in legs with ambu. Dressing to low mid back with shadow drainage 0.5in x 1in. Neurovascular intact. Declines SCDs, wears compression stockings. Noted to have occasional dry cough (~2 xhr) overnight. Anticipate discharge to [facility] today.
[2019-07-29 08:00] VITALS: BP 130/69; PULSE 66; RESP 18; TEMP 37; O2SAT 95
--- NOTE | 2019-07-29 08:37 | PM.PNPO.1 ---
Subjective Subjective Date Patient Seen: 07/29/19 Time Patient Seen: 08:35 Interval history: No back pain. Legs are doing a little bit better. Stomach feels better Exam Vital Signs (past 8 hours): - 07/29/19 03:00 Temperature 98.0 F Pulse Rate 69 Respiratory Rate 16 Blood Pressure 133/68 Pulse Oximetry 96 Oxygen Delivery Method Room Air Oxygen Flow Rate 0 Const Orientation: alert and oriented x3 Back/Spine/Pelvis Other: CDI. 5/5 motor both lower extremities Objective Imaging CT scan lumbar spine: My impression: Well positioned hardware at L4-5 fusion. Open laminectomy from L2 through 5. No postoperative hematoma. Everything appears widely decompressed. Labs Result Diagrams: 07/25/19 04:50 07/25/19 04:50 Assessment & Plan Post-op Postoperative Procedures: Procedures Operation Date: 07/24/19 10:15 Actual Procedures Side Surgeon p L2-5 laminectomies, L45 instrumentated fusion Sid Jolly MD She is doing well. [facility]
--- NOTE | 2019-07-29 09:37 | PC.NURSE ---
Patient is currently up in the bathroom taking a shower. She has refused any assistance during her shower. Patient does not follow her precautions for surgical procedure.
[2019-07-29] MEDS: FLUoxetine 20 MG CAPSULE 40 MG PO (09:53)
[2019-07-29] MEDS: polyethylene glycoL 3350 17 GM POWD.PACK PO (09:53)
[2019-07-29] MEDS: dilTIAZem 30 MG TABLET 60 MG PO (09:54)
[2019-07-29] MEDS: estradioL 1 MG TABLET 2 MG PO (09:54)
[2019-07-29] MEDS: MEDROXYPROGESTERONE ACETATE 2.5 MG TABLET 5 MG PO (09:54)
[2019-07-29] MEDS: OXYBUTYNIN 5 MG ER TAB 20 MG PO (09:54)
--- NOTE | 2019-07-29 10:50 | PC.NURSE ---
Day shift: Report called to Ashly GODFREY at [facility]. All questions answered. Will supply Pt with 2 extrea CoverSites if needed. Per RN they do not have Cover Sites at that facility.
--- NOTE | 2019-07-29 11:14 | PC.NURSE ---
Day shift: Pt off unit and on way to SNF with her friend in private car at 1110. Has SNF packet and all belongings. scripts in packet. Has extra CoverSite dressings if needed. Taken in WC to the car by this marketing underwriter. She is ambulating well. All questions answered.
--- NOTE | 2019-07-29 11:57 | CM.DPC ---
DCP/Continued: Reviewed notes. Apparently initial thought on 07-24-2019 is that patient was not going to meet inpatient status? Apparently since that time patient has. No notes from CM team indicating any updates or change to plans. STERILE TECH handoff reports that patient has been accepted to [facility]? Placed call to [facility] spoke with Kim in admit. She reports that they are in agreement to accept patient today. Met with patient to confirm plan and she is aware and agreeable. Notified patient that [facility] does not provide transport. Patient reports that she will have friend pick her up by noon. Orders, and d/c summary faxed to [facility]. RN given number to call nrsg report. No additional needs identified. P: [facility] for inpatient rehabilitation today. Patient in agreement with plan. GAVIN signed by PRITI at approximately 10:00AM on patient's behalf. PRITI Gomez
== END 2019-07-29 11:16 | disposition other institution (70) | DRG 455 ==
PROVIDERS: Admitting Provider Orthopaedic Surgery; PCP Family Medicine; Referring Provider Orthopaedic Surgery; Visit Provider Orthopaedic Surgery
PROC: 0SG00AJ Fusion of Lumbar Vertebral Joint with Interbody Fusion Device, Posterior Approach, Anterior Column, Open Approach (ICD-10-PCS; principal; 2019-07-24 10:15)
DX: M48.062 Spinal stenosis, lumbar region with neurogenic claudication (principal); M43.16 Spondylolisthesis, lumbar region; F31.9 Bipolar disorder, unspecified; K22.4 Dyskinesia of esophagus; N39.46 Mixed incontinence; M79.605 Pain in left leg; M79.604 Pain in right leg; R10.9 Unspecified abdominal pain; Z87.891 Personal history of nicotine dependence
CPT/HCPCS: 36415; 72100; 72131; 76000; 80048; 85014; 85018; 93970; 94760; 94762; 97116; 97162; 97165; 97530; 97535; C1776; J0330; J0595; J0690; J1100; J1170; J2274; J2405; J2704; J3010

== ENCOUNTER → 2020-09-01 11:35 | Outpatient (CLI) | payer MEDICARE, OTHER, SELFPAY ==
[2020-08-06 16:05] VITALS: BMI 25.6
[2020-09-01 12:59] LABS: COVID19 -Nasal RAPID Negative (Negative)
== END ==
PROVIDERS: PCP Family Medicine; Visit Provider Physician Assistant
DX: Z20.822 Contact with and (suspected) exposure to COVID-19 (principal)
CPT/HCPCS: 87635; C9803

== ENCOUNTER 2020-09-02 11:32 | Day surgery (SDC) | payer MEDICARE, OTHER, SELFPAY ==
[2019-07-24 17:12] VITALS: BMI 25.6
[2020-08-06 16:05] VITALS: BMI 25.6
[2020-09-02] VITALS (15 sets, daily range): BP systolic 99–135; BP diastolic 44–73; PULSE 66–82; RESP 12–18; TEMP 36.2–36.8; O2SAT 92–96; BMI 24.7
--- NOTE | 2020-09-02 | DI.RAD.S_ITS ---
PROCEDURE: XR HIP W PEL IF DONE RT 4V INDICATIONS: INTRA OP ANTERIOR RT HIP TECHNIQUE: 2 view(s) of the hip acquired. COMPARISON: Located Within [facility], CR, XR HIP W PEL IF DONE RT 2V, 09/02/2020, 18:04. [facility], CR, XR PELVIS WITH BILATERAL LATERAL HIPS, 04/11/2020, 11:13. FINDINGS: 4 intraoperative fluoroscopy images demonstrate total right hip arthroplasty. The prosthesis is in anatomic alignment. IMPRESSION: Right hip prosthesis is in anatomic alignment. Dictated by: Cachorro Herman M.D. on 09/02/2020 at 19:22 Approved by: Cachorro Herman M.D. on 09/02/2020 at 19:23
--- NOTE | 2020-09-02 06:00 | DI.RAD.S_ITS ---
PROCEDURE: XR HIP W PEL IF DONE RT 2V INDICATIONS: post op films total right TECHNIQUE: AP pelvis and lateral view of the right hip acquired. COMPARISON: [facility], CR, XR PELVIS WITH BILATERAL LATERAL HIPS, 04/11/2020, 11:13. [facility], CR, XR HIP W PEL IF DONE RT 4V, 09/02/2020, 16:05. FINDINGS: Bones: Patient is status post right hip arthroplasty, with hardware components in expected positions. The hip joint appears congruent. The visualized bony structures appear intact. Soft tissues: Overlying postoperative changes are noted. No suspicious soft tissue densities. IMPRESSION: Right hip prosthesis in anatomic alignment. Dictated by: Cachorro Herman M.D. on 09/02/2020 at 19:24 Approved by: Cachorro Herman M.D. on 09/02/2020 at 19:25
[2020-09-02] MEDS: ACETAMINOPHEN 325 MG TABLET 975 MG PO (12:29)
[2020-09-02] MEDS: CELECOXIB 200 MG CAPSULE PO (12:30)
[2020-09-02] MEDS: PREGABALIN 75 MG CAPSULE PO (12:30)
[2020-09-02] MEDS: VANCOMYCIN 1,000 MG/200 ML PIGGYBACK 200 MG IV (12:50)
[2020-09-02] MEDS: LACTATED RINGERS 1,000 ML 100 ML IV ×2 (13:30→16:41)
--- NOTE | 2020-09-02 13:48 | PM.PREOP ---
Pre-operative Note COVID-19 COVID-19 status: Negative Interval Note History & Physical reviewed/Exam performed by Physician: Yes Changes to H&P: No
[2020-09-02] MEDS: CEFAZOLIN 2 GM/100 ML FROZ.PIGGY IV ×2 (14:20→22:20)
--- NOTE | 2020-09-02 14:36 | PM.OP.1 ---
Operative Date/Time/Diagnoses Date of procedure: 09/02/20 Time of procedure: 14:37 Pre-op diagnosis: Severe right hip OA Post-op diagnosis: same Procedure & Clinicians Procedure: severe right hip osteoarthritis Same procedure as scheduled: Yes Indications: The patient has had progressively worsening right hip pain with radiographic changes consistent with arthritis. Non-operative management has failed and the patient has requested total hip replacement. The risks, benefits and alternatives to surgery were discussed with the patient prior to proceeding. Risks discussed included, but were not limited to, failure to relieve pain, leg length discrepancy, dislocation, stiffness, infection, nerve damage, deep venous thrombosis, pulmonary embolism, stroke, coma, heart attack, permanent paralysis and , as well as the potential need for eventual revision of the prosthetic. Surgeon: Holli Keating Home Mission Worker: Yehuda Paez Anesthesia Type: General and Spinal Operative Notes Findings: severe right hip osteoarthritis, adequate stability, soft bone Closure Type: primary Specimen(s): none sent Prosthetic devices, grafts, tissues, transplants, or devices: Keating [employer]hew R3 50 mm cup, anthology standard offset Size 6, 32 by - 3 femoral head Estimated Blood Loss (mL): 250 Blood products transfused: none Procedure in detail: The patient was brought to the operating room. Patient was carefully positioned in the supine position. Time-out was performed and antibiotics were given. Anesthesia was induced. She was positioned in the on the table in order to allow hyperextension of the hip. The right lower extremity was prepped and draped in a standard sterile fashion. An anterior right hip incision was made 1 fingerbreadth lateral to the anterior superior iliac spine and extended distally towards the greater trochanter. Dissection was carried out through skin and subcutaneous tissues. Superficial hemostasis was achieved. The fascia over the tensor fascia joanne was defined and incised with a knife. Two Allis clamps were used to grasp the fascia. Tensor fascia joanne was retracted laterally. A gelpi retractor was placed. Dissection was carried out down along the neck. The circumflex vessels were carefully identified and cauterized with the Aqua Mantis. There was good visualization of the femoral neck. A Cobra was placed superior to the neck and the gluteus fibers were carefully stripped from that superior aspect of the capsule. A 2nd retractor was placed along the inferior aspect of the neck. The rectus insertion along the capsule was partially released. A 3rd retractor that was then gently placed over the rim of the acetabulum under the rectus. Capsule was carefully incised and released from the intertrochanteric line circumferentially superior to the mid sagittal line and inferiorly to the mid sagittal line until the lesser trochanter was palpable. A tag stitch was placed both in the superior and inferior limb of the capsular insertion. Along the acetabulum capsule was also released up to the mid sagittal 12:00 position. A portion of the labrum was resected. A saw was used to perform an osteotomy at the level of the intertrochanteric line and the junction of the superior femoral neck leaving approximately 1 finger breath of residual inferior neck above the lesser trochanter. A 2nd cut was made along the femoral neck at the base of the head and a napkin ring of neck was removed. Corkscrew was placed in the femoral head and the head was removed without difficulty. Retractors were then repositioned around the acetabulum. Residual labrum was resected and additional osteophytes were removed. A reamer that was 4 mm below the templated size was placed by hand in the acetabulum and it was reamed to centralize the acetabulum. It was then reamed up to 2 under the templated size and fluoroscopy was brought in to confirm the position of the reaming and depth of reaming. I reamed 1 under the anticipated size. A trial cup was placed and noted that it was appropriately sized and fluoroscopy confirmed position and depth. The component was open and inserted without difficulty fluoroscopic imaging was used to confirm that the cup had been adequately seated and was well positioned. It was further stabilized with a single screw. Neutral poly liner was placed. The cup was tested and noted to be stable. Attention was then directed to the femur. The femur was gently hyperextended additional capsular release was performed as needed in order to allow adequate visualization of the proximal femur with elevation of the femur. Patient was placed in a hyperextended slightly adducted position with maximum external rotation. Box osteotome was used to check for any residual neck as well as sclerotic bone along the trochanter. [place] pepper was placed in the femur. Additional broaching was performed. Canal finder was used to determine the alignment of the canal and position. Size 1 broach was placed. The canal was then appropriately broached up to the templated size as long as there was adequate stability of the broach and serial advancement of the broach without excessive impingement. Specific attention was directed at avoiding varus attempting to direct the distal aspect of the broach more anteriorly and avoiding excessive anteversion. Trial reduction showed acceptable range of motion, good stability, no posterior impingement, yazidism of leg length and appropriate lateral shuck. I also hyperflexed the hip and checked that there was no impingement anteriorly and there was good stability with flexion, adduction and internal rotation. Marcaine and Exparel were injected.. The stem was placed without difficulty. It was a fairly tight fit. x-ray showed acceptable overall position, length, and no evidence of the femoral fracture after final head was placed. Wound was meticulously irrigated with normal saline. The hip was reduced and additional Exparel and Marcaine were injected. The capsule was closed with interrupted nonabsorbable sutures. The fascia of the tensor was closed with interrupted and running Vicryl. No drain was placed. Any tensor fascia joanne muscle that appeared to be contused or injured which was a minimal amount was carefully resected. Capsule around the tensor was injected with Exparel and Marcaine. The skin was closed with barbed stitches for the subcutaneous tissue and skin. We also used surgical glue. The wound was dressed sterilely. Brief Betadine soak was also used and was meticulously irrigated with normal saline. Patient was transferred to recovery room in satisfactory condition. Complications: none Post-operative Condition: stable Disposition: Acute Care Plan for aftercare: The patient will be maintained on a standard total hip replacement protocol with weight bearing as tolerated and anterior hip precautions. The patient will receive Aspirin and sequential compression devices for DVT prophylaxis. The patient will be discharged home when safe for the home environment.
[2020-09-02] MEDS: TRANEXAMIC ACID 1,000 MG VIAL 1000 MG INJ ×2 (15:00→17:13)
--- NOTE | 2020-09-02 15:54 | SUR.OPER ---
Supine on padded [place] table with bilateral legs secured in padded positioning boots and suspended in positioning spars, operative leg in traction per surgeon. Head on one pillow. Arm on non-operative side secured on padded armboard <90 degrees abduction. Arm on operative side padded and resting across chest then secured with tape over sheet. Padded perineal post in place per surgeon.
[2020-09-02] MEDS: BUPIVACAINE LIPOSOME 266 MG/20 ML VIAL INJ (15:59)
[2020-09-02] MEDS: BUPIVACAINE 0.5% W/ EPI (PF) 30 ML VIAL INJ (16:00)
--- NOTE | 2020-09-02 18:14 | SUR.PHASEI ---
Received to PACU after general anesthesia. Airway patent, self maintained. Report from Dr Yeung and Scott RN. Pt states she is foggy. Alert and oriented x3. Pt anxious and needs reassurance that she is ok.
[2020-09-02] MEDS: ONDANSETRON 4 MG/2 ML INJ IV (18:36)
[2020-09-02] MEDS: OXYCODONE IR 5 MG TABLET PO (18:36)
[2020-09-02] MEDS: LACTATED RINGERS 1,000 ML 125 ML IV (19:30)
[2020-09-02] MEDS: TRAZODONE 50 MG TABLET 25 MG PO (20:29)
[2020-09-02] MEDS: dilTIAZem 30 MG TABLET 60 MG PO (20:29)
[2020-09-02] MEDS: ACETAMINOPHEN 325 MG TABLET 650 MG PO (20:30)
[2020-09-02] MEDS: DOCUSATE 100 MG CAPSULE PO (20:30)
[2020-09-02] MEDS: OXYBUTYNIN 5 MG ER TAB 20 MG PO (20:31)
[2020-09-02] MEDS: ASPIRIN EC 81 MG TABLET PO (20:31)
[2020-09-02] MEDS: diphenhydrAMINE 25 MG TABLET PO (20:31)
[2020-09-02] MEDS: GABAPENTIN 100 MG CAPSULE PO (20:32)
[2020-09-02] MEDS: IBUPROFEN 400 MG TABLET PO (20:32)
[2020-09-02] MEDS: HYDROCODONE/ACET 5/325 TABLET 1 TAB PO (23:34)
[2020-09-03] VITALS (7 sets, daily range): BP systolic 114–140; BP diastolic 52–84; PULSE 67–82; RESP 16–17; TEMP 36.1–36.6; O2SAT 93–97
[2020-09-03] MEDS: IBUPROFEN 400 MG TABLET PO ×4 (01:19→12:41)
[2020-09-03] MEDS: CEFAZOLIN 2 GM/100 ML FROZ.PIGGY IV (05:23)
[2020-09-03 05:44] LABS: Hematocrit 30.5 % (36-46); Hemoglobin 10.2 g/dL (12.0-16.0)
[2020-09-03] MEDS: SODIUM CHLORIDE 0.9% FLUSH 10 ML IV ×2 (06:55→09:22)
--- NOTE | 2020-09-03 07:06 | PC.NURSE ---
0600 Pt. states Help, help,I'm trying to cone picker my reading material & my water. Instructed pt. not to get up OOB without any assistance. Pt. some what impulsive, Call light within reach, bed alarm activated all night.
[2020-09-03] MEDS: HYDROCODONE/ACET 5/325 TABLET 1 TAB PO (07:43)
--- NOTE | 2020-09-03 08:20 | PM.DS.1 ---
History of Present Illness History of Present Illness Date Patient Seen: 09/03/20 Time Patient Seen: 08:20 Chief complaint: *OPB* Narrative: Please refer to HPI documented in chart. Discharge Providers Provider Discharge Date: 09/03/20 Primary care physician: ZACHERY Avery Consults: 09/02/20 06:00 Consult to Anesthesiology Routine Comment: Consulting Provider: Anesthesiologist Reason for consultation: Regional block for post operative pain control 09/02/20 19:25 Consult to Discharge Planning Routine Comment: Consult to Physical Therapy Evaluate & Treat Comment: Physician Instructions: post op RAMA protocol Consult to Respiratory Therapy Evaluate & Treat Comment: Physician Instructions: Evaluate and treat Discharge provider: Yehuda Paez PA-C Summary Hospital Course Discharge Diagnosis: Right hip osteoarthritis Status post total right hip arthroplasty via anterior approach Hospital Course: 79-year-old female was appropriately consented for the above listed diagnoses and presented to the OR undergoing associated procedure without difficulty or complication and admitted to hospital for overnight rehabilitation including pain management and PT/OT to confirm safe disposition home. On postoperative day 1 the patient was evaluated and in stable condition for discharge denying any fever, chills, chest pain, shortness of breath, intractable pain or related postoperative neurovascular complaint. She was able to void & her wound was clean dry and intact and she verbalized understanding all postoperative care instructions. Status at Discharge Cognitive/behavioral status at discharge: oriented Functional status at discharge: uses cane/walker Overall status at discharge: patient is progressing back to baseline Time Spent with Patient Time spent: Less than 30 minutes Exam Vital Signs (past 8 hours): - 09/03/20 05:27 Temperature 97.0 F L Pulse Rate 79 Respiratory Rate 16 Blood Pressure 123/62 Pulse Oximetry 93 Oxygen Delivery Method Room Air Oxygen Flow Rate 0 Narrative Exam Narrative: Observed lying in bed in no apparent distress, she was alert oriented x3. Her calves were soft, compressible and nontender bilaterally. Her distal effected extremity exam reveals grossly intact dorsal and plantar flexion. She was neurovascularly intact with gross Ana María normal sensation and 2+ pulses. Her wound was clean dry and intact. Objective Labs Result Diagrams: 09/03/20 05:15 Labs: Laboratory Results - last 24 hr 09/03/20 05:15 Hgb 10.2 L Hct 30.5 L [facility] Medical History (Updated 09/01/20 @ 09:46 by Daniella L Walton, RN) Anxiety Arthritis Cervical spinal stenosis Chronic diarrhea Depression Difficult airway for intubation Diverticulosis DJD (degenerative joint disease) HLD (hyperlipidemia) HTN (hypertension) Incontinence of feces Inflammatory bowel disease Murmur, cardiac Non-rheumatic tricuspid valve insufficiency Nutcracker esophagus Osteoporosis Primary osteoarthritis of right hip Rectal fissure Scoliosis Spinal stenosis Urinary incontinence, mixed Zenkers diverticulum Surgical History (Updated 08/27/20 @ 10:48 by Daniella Walton, RN) History of cataract extraction History of lumbar laminectomy History of surgery Hx of dilation and curettage Social History household members: none Smoking Status: Former smoker alcohol intake: current Discharge Assessment & Plan Assessment and Plan Assessment: Right hip osteoarthritis Status post right total hip arthroplasty via anterior approach Plan of Treatment: 1. Total hip care protocol supply. 2. PT/OT eval and treat before discharge. 3. Discharge home. 4. Follow-up in clinic for re-evaluation in 2 weeks as scheduled or sooner as needed. Discharge Plan Discharge Plan Patient Disposition: Home Provider Discharge Comment: This afternoon after PT/OT. Discharge orders & Medications Discharge Orders: Discharge (Order); Ordered 09/03/20 Ordered By: Yehuda Paez Prescriptions: New acetaminophen 500 mg capsule 1,000 mg PO Q6H Qty: 60 RF: 0 aspirin 81 mg Tablet,Delayed Release (Dr/Ec) 81 mg PO BID Qty: 60 RF: 0 tramadol 50 mg Tablet 50 mg PO QID PRN (Reason: Pain) Qty: 60 RF: 0 Continued oxybutynin chloride 10 mg Tablet Extended Release 24hr 20 mg PO BID RF: 0 estradiol [Estrace] 2 mg Tablet 2 mg PO DAILY RF: 0 fluoxetine 20 mg Capsule 40 mg PO DAILY RF: 0 Prolia 60 mg/mL Syringe 60 mg SUBCUT [id number] RF: 0 medroxyprogesterone 5 mg Tablet 5 mg PO DAILY RF: 0 diltiazem HCl 60 mg Tablet 60 mg PO QID RF: 0 diphenoxylate-atropine [Lomotil] 2.5-0.025 mg Tablet 1 tab PO DAILY PRN (Reason: Diarrhea) RF: 0 trazodone 50 mg Tablet 25 mg PO BEDTIME RF: 0 meloxicam 7.5 mg tablet 7.5 mg PO DAILY RF: 0 gabapentin 100 mg capsule 100 mg PO TID RF: 0 diphenhydramine-acetaminophen 38-500 mg Tablet 1 tab PO BEDTIME RF: 0 calcium carbonate 500 mg Capsule 500 mg PO RF: 0 vitamin E 100 unit Capsule 100 unit PO DAILY RF: 0 denosumab 60 mg/mL Syringe 60 mg SUBCUT [id number] RF: 0 tramadol 50 mg Tablet 50 mg PO QID PRN (Reason: Pain) Qty: 60 RF: 0 Discontinued hydrocodone-acetaminophen 5-325 mg Tablet 1 tab PO Q4HR PRN (Reason: Pain, Moderate (4-6)) Qty: 30 RF: 0 methocarbamol 750 mg Tablet 750 mg PO DAILY RF: 0 Follow up/Referrals: Christiana Cohen ARNP [Primary Care Provider] - Holli Keating MD [Physician] - (2 weeks) Diet/Activity/Treatments Diet: Diet as Tolerated Activity: Standard total hip replacement protocol with weight bearing as tolerated and anterior hip precautions. Cold/Heat Therapy: Ice 20 minutes every hour as needed and tolerated. Skin/Wound/Dressing Care Report to your healthcare provider any signs of infection, such as:: chills, fever, night sweats, increased pain, unusual drainage and unusual redness Dressing: Call if dressing is soiled or saturated. Visit Report/Discharge Packet Instructions: DI for Hip Replacement, DI for Prescription Opioid Use, Tramadol Stand Alone Forms: Surgery Discharge Discharge Data Primary Care Provider: Christiana Cohen Attending Provider: Holli Keating Quality VTE Deep Vein Thrombosis/Pulmonary Embolism Present on Admission: No
[2020-09-03] MEDS: MEDROXYPROGESTERONE ACETATE 2.5 MG TABLET 5 MG PO (09:17)
[2020-09-03] MEDS: estradioL 1 MG TABLET 2 MG PO (09:18)
[2020-09-03] MEDS: OXYBUTYNIN 5 MG ER TAB 20 MG PO (09:19)
[2020-09-03] MEDS: FLUoxetine 20 MG CAPSULE 40 MG PO (09:20)
[2020-09-03] MEDS: GABAPENTIN 100 MG CAPSULE PO (09:21)
[2020-09-03] MEDS: dilTIAZem 30 MG TABLET 60 MG PO ×2 (09:21→12:42)
[2020-09-03] MEDS: ASPIRIN EC 81 MG TABLET PO (09:22)
--- NOTE | 2020-09-03 10:57 | PT.IIE ---
Current Diagnoses Unilateral primary osteoarthritis, right hip (09/02/20) Strain of muscle, fascia and tendon of lower back, subsequent encounter (09/02/20) Arthrodesis status (09/02/20) Surgery Performed Operation Date: 09/02/20 13:45 Actual Procedures p Total Hip Arthroplasty/Anterior Approach(Right) - Holli Keating MD Surgical History (Last Updated 08/27/20 @ 10:48 by Daniella Walton, RN) History of cataract extraction History of lumbar laminectomy History of surgery Hx of dilation and curettage Medical History (Last Updated 09/01/20 @ 09:46 by Daniella Walton, RN) Anxiety Arthritis Cervical spinal stenosis Chronic diarrhea Depression Difficult airway for intubation Diverticulosis DJD (degenerative joint disease) HLD (hyperlipidemia) HTN (hypertension) Incontinence of feces Inflammatory bowel disease Murmur, cardiac Non-rheumatic tricuspid valve insufficiency Nutcracker esophagus Osteoporosis Primary osteoarthritis of right hip Rectal fissure Scoliosis Spinal stenosis Urinary incontinence, mixed Zenkers diverticulum Physical Therapy Inpatient Evaluation/Re-Eval M1 PT/OT-IP Prior Functional Status Start: 09/03/20 08:35 Freq: NEEDED Status: Active Protocol: Document 09/03/20 10:31 (Rec: 09/03/20 10:56 [id number]) Medical Review Prior Functional Status Medical History Reviewed Yes Diet/Fluid Consistency Regular Communication no deficits noted. able to make needs known Mobility and Gait SPC for all mobility. Pt has unsteady gait prior to surgery . She also stated she fell multiple times prior to her back surgery from last year. Activities of Daily Living and IADL's IND for all ADLs and IADLs with SPC Prior Functional Level (Other details) had back surgery in 2019 Social History Household Members none Living Arrangements House Number of Floors (Floors) One Floor Number of Stairs To Enter/Railing? 3 DENISE with R rail to front entrance 1 DENISE from garage without railing. Has a dog lives in the garage. Home Environment High Toilet,Walk in Shower,Tub /Shower Home Equipment Front Wheel Walker,Four Wheel Walker,Straight Cane,Hand Held Shower,Machine Tool Technician Instructor,Grab Bars In Shower Employment Status Retired Additional Social History Comment pt lives a lone in [place] but her son from [place] will stay with her to assist. M2 PT-IP Current Condition Start: 09/03/20 08:35 Freq: NEEDED Status: Active Protocol: Document 09/03/20 10:31 HH (Rec: 09/03/20 10:56 [email or web address]) Physical Therapy Current Condition Current Condition Evaluation Date 09/03/20 Treatment Diagnosis R RAMA anterior approach, difficulty in walking Onset Date 09/02/20 Precautions Anterior Hip Precautions No Hip Extension,No Hip External Rotation Weight Bearing Status Weight Bearing Status Weight Bear as Tolerated M3 PT-IP Subjective Start: 09/03/20 08:35 Freq: NEEDED Status: Active Protocol: Document 09/03/20 10:31 HH (Rec: 09/03/20 10:56 [email or web address]) Subjective Physical Therapy Visit Type Type Initial Evaluation Visit Start Time 09:27 Visit Stop Time 10:06 Total Visit Minutes 39 Number of PRODUCT SUPPORT SALES REPRESENTATIVE Visits 0 Physical Therapy Visit Comments Patient Comments Im doing good Patient Goals Pt wants to go home TRAMAINE Therapy Pain Assessment Pain When Pain Assessed During Mobility Pain Present Pain Present Pain Reported Location Back Intensity 3 Scale Used Numeric (0 - 10) Description Aching Pain Management Techniques Timing of Activity with Medications M4 PT-IP Mobility and Gait Start: 09/03/20 08:35 Freq: NEEDED Status: Active Protocol: Document 09/03/20 10:31 HH (Rec: 09/03/20 10:56 [email or web address]) PT-Bed Mobility Assessment Supine to Sit Supine to Sit Standby Assistance Scooting Scooting to Edge of Bed Standby Assistance PT-Transfer Assessment Sit to and From Stand Sit to and from Stand Contact Guard Assistance,1 Person Assistance,Use of Upper Extremities Equipment Transfer Assistive Device Gait Belt,Front Wheeled Walker Orthotic/Prosthetic Devices or Brace: No Transfers Transfer Destination Bed,Chair Transfer Technique Stand Step Pivot Transfer Ability Level of Assist Contact Guard Assistance,1 Person Assistance,Use of Upper Extremities Comments Mobility Comments Pt was in bed upon PT arrival. She showed short attention span and easily distracted. Educated pt post op precautions but she did need multiple reminders during the session. Pt requested to use bathroom and to be changed with her home clothes. Pt then sit up from bed SBA and pivoted to her R side EOB by using [place] to life RLE. BP = 128/55. She then stood up by pushing off from bed and walker armrest. Pt was impulsive to walk and she was somehwhat unsteady but no LOB. Pt walked with toe in gait CGA to bathroom and transferred herself to toilet with use of grab bar. After she voided, pt requested to change her clothes but she has difficulty donning her underwear and pants (unable to lift her RLE) and needed min A. She then stood up and almost fell backward while pulling her pants up. This PT cont recommended her to slow down and focused on her current task. Pt then walked with FWW out of the room and to staircase. She amb with small steps and constantly got distracted by her surroundings. She then had stair training with PT but she has difficulty understanding the step sequence even thought with clear instructions. Pt's R hip alost buckled a few times during ascend and descend who needed min A. Pt then walked back to her room and transfer to bedside chair with poor descend from a far distance. This PT spent time educating her the importance of the safety guidelines and being focused with her current tasks. Recommended to have her son to come in this PM for CG training as well. Call light placed within reach after and chair alarm activated. Gait Assessment Gait Gait Assistance Required: Contact Guard Assist Distance (Feet) 200 Able to Maintain Weight Bearing Status Yes During Gait Assistive Devices Assistive Device Gait Belt,Front Wheeled Walker Orthotic/Prosthetic Devices or Brace: No Gait Deviations General Gait Pattern Antalgic,Decreased Stride Length,Decreased Feet Clearance,Flexed Trunk,Step-to Gait Factors Limiting Gait Function Factors Limiting Gait Function Decreased Activity Tolerance, Decreased Strength,Difficulty Following Directions,Limited Range of Motion,Pain,Poor Balance,Poor Safety Awareness Comments Gait Comments see mobility comments. Stair Climbing Assessment Evaluation Level of Assist On Stairs Minimal Assistance Devices Stair Climbing Assistive Devices Right Railing Technique/Endurance Stair Climbing Direction Ascend and Descend Stair Climbing Technique Step to Step Number of Steps Climbed 3 Query Text: Stair Climbing Set # Repetitions (reps) 1 Comments Stair Climbing Comments see mboility comments. PT-Balance Assessment Sitting Balance and Reactions Static Sitting Balance Ability Normal Dynamic Sitting Balance Ability Normal Standing Balance and Reactions Static Standing Balance Ability Good Dynamic Standing Balance Ability Fair Device Used FWW M5 PT-IP Objective Assessments Start: 09/03/20 08:35 Freq: NEEDED Status: Active Protocol: Document 09/03/20 10:31 (Rec: 09/03/20 10:56 [email or web address]) Orientation Orientation/Cognition Level of Alertness Confusional State Orientation Name,Age,Birthday,Month,Date, Year,Day of Week,Place, Situation Language Function Ability No Deficits Noted Safety Awareness Decreased Safety Awareness Memory Description Short Term Impaired Comments pt was very impulsive and easily distracted. She has difficulty following instructions and needed multiple reminders for safety awareness. Gross Range of Motion Upper Extremity ROM Assessment Within Functional Limits Lower Extremity ROM Assessment Right Impaired Strength Upper Extremity Strength Assessment Within Functional Limits Lower Extremity Strength Assessment Right Impaired Hip 3/5 Knee 4/5 Sensation Assessment Sensation Gross Sensation WNL M6 PT-IP Treatment Start: 09/03/20 08:35 Freq: NEEDED Status: Active Protocol: Document 09/03/20 10:31 (Rec: 09/03/20 10:56 [email or web address]) Physical Therapy Treatment Exercises Exercises Ankle Pumps,Gluteal Sets Education Education Provided Precautions,Weight Bearing Status,Post-Op Packet,Safety M7 PT-IP Assessment and Plan Start: 09/03/20 08:35 Freq: NEEDED Status: Active Protocol: Document 09/03/20 10:31 (Rec: 09/03/20 10:56 [email or web address]) PT Summary Assessment and Plan Potential Rehabilitation Potential Good Status of Condition at Evaluation Stable Summary Impairments Pain,ROM,Strength,Balance, Cognition,Bed Mobility, Transfers,Gait,Activity Tolerance Assessment Summary pt is a 79 yo female s/p POD1 R RAMA with anterior approach. PLOF= pt lives alone and uses SPC for mobility. Pt had a back suregery last year which helped her falls a lot. CLOF= pt was very impulsive and easily distracted during session who needed constant cues for safety awareness. She was able to amb with FWW CGA but unsafe with stair climbing who has difficulty following instructions. SW called son for CG training this pm prior to DC home. Goals Bed Mobility Goal Contact Guard Assistance Transfer Goal Contact Guard Assistance,Front Wheeled Walker Gait Goal Contact Guard Assistance,Front Wheel Walker Gait Distance 200 Other Goals 3 [place] with R rail CGA with proper step sequence. Days to Meet Goals 2 Frequency of Treatment Frequency Of Treatment Twice a Day Treatment Plan Physical Therapy Treatment Plan Bed Mobility Training,Transfer Training,Gait Training, Therapeutic Exercise,Balance Retraining,Post Op Education, Discharge Planning,Hot or Cold Pack Other Recommendations and Next Treatment CG training with son . Focus ADLs and stair climbing and post op precautions adjustment for her home walker Precautions Anterior Hip Precautions No Hip Extension,No Hip External Rotation Recommendations To Nursing Amount of Assist Needed 1 Person Assist Discharge Recommendations PT Discharge Recommendations Home with Assistance, Outpatient PT Transportation Needs at Discharge Private Vehicle
--- NOTE | 2020-09-03 11:42 | CM.DANOTE ---
DCP: Case received, EMR reviewed and met with patient. Introduced self and role. Was able to obtain information from patient regarding her baseline activity status prior to surgery, as well as her current living situation. DCP assessment completed with information currently available. Patient is a 79 year old female who admitted yesterday morning to the care of the orthopedic team. PCP: Dr. Cohen. Payer: confirmed: Medicare/[facility]. Patient came to the hospital for a surgical procedure. She had right total hip arthroplasty. Patient has history of right hip pain. She also indicated that she had back surgery last year here at the hospital. Met with patient in her room. She is alert and oriented, sitting up in bed. Confirmed with patient that she resides in [facility] alone, but has her son, Geoff, that will be staying with her after surgery. There are 3 steps to get into the house. She also mentioned that she has a cane, but will also be using her son's walker, that he had used in the past when he fell. Spoke to P.T. Stated that they recommend getting in touch with son for caregiver training. Was able to contact son, Geoff. He is planning on being here at approximately 1300. Relayed this to P.T. He was inquiring to this nurse case manager if patient would be able to navigate the steps into the house. Let him know that P.T. is working on this, which is why they want him here for training. Patient also indicated that she will be going to outpatient P.T. in [facility]. P: Patient is supposed to discharge home today, pending another session with P.T, and caregiver training with son. Meagan Yuen RN/[employer]
--- NOTE | 2020-09-03 14:10 | PC.NURSE ---
Discharge education given to pt and son, discussed- medications and med safety, s/s of infection, s/s of stroke, diet, activity, weight measures, f/u appts, worsening symptoms, and dressing care. All questions answered. IV removed, intact, tolerated well. Pt dressed with FISCAL ACCOUNTING CLERK assistance. Left via w/c with son to PO, assisted by FISCAL ACCOUNTING CLERK.
--- NOTE | 2020-09-03 14:13 | PT.IPTN ---
Current Diagnoses Unilateral primary osteoarthritis, right hip (09/02/20) Strain of muscle, fascia and tendon of lower back, subsequent encounter (09/02/20) Arthrodesis status (09/02/20) Surgery Performed Operation Date: 09/02/20 13:45 Actual Procedures p Total Hip Arthroplasty/Anterior Approach(Right) - Holli Keating MD Physical Therapy Treatment Note M2 PT-IP Current Condition Start: 09/03/20 08:35 Freq: NEEDED Status: Discharge Protocol: Document 09/03/20 10:31 HH (Rec: 09/03/20 10:56 [id number]) Physical Therapy Current Condition Current Condition Evaluation Date 09/03/20 Treatment Diagnosis R RAMA anterior approach, difficulty in walking Onset Date 09/02/20 Precautions Anterior Hip Precautions No Hip Extension,No Hip External Rotation Weight Bearing Status Weight Bearing Status Weight Bear as Tolerated M3 PT-IP Subjective Start: 09/03/20 08:35 Freq: NEEDED Status: Discharge Protocol: Document 09/03/20 13:59 HH (Rec: 09/03/20 14:12 [id number]) Subjective Physical Therapy Visit Type Type Treatment Note Visit Start Time 13:35 Visit Stop Time 13:55 Total Visit Minutes 20 Notes yunier Olsen attended session Number of RACE STEWARD Visits 0 Physical Therapy Visit Comments Patient Comments Im ready to leave Patient Goals Pt wants to go home TRAMAINE Therapy Pain Assessment Pain When Pain Assessed During Mobility Pain Present Pain Present Pain Reported Location Right Hip Intensity 3 Scale Used Numeric (0 - 10) Description Aching Pain Management Techniques Timing of Activity with Medications M4 PT-IP Mobility and Gait Start: 09/03/20 08:35 Freq: NEEDED Status: Discharge Protocol: Document 09/03/20 13:59 HH (Rec: 09/03/20 14:12 [id number]) PT-Bed Mobility Assessment Supine to Sit Supine to Sit Standby Assistance Scooting Scooting to Edge of Bed Standby Assistance PT-Transfer Assessment Sit to and From Stand Sit to and from Stand Contact Guard Assistance,1 Person Assistance,Use of Upper Extremities Equipment Transfer Assistive Device Gait Belt,Front Wheeled Walker Orthotic/Prosthetic Devices or Brace: No Transfers Transfer Destination Bed,Chair Transfer Technique Stand Step Pivot Transfer Ability Level of Assist Contact Guard Assistance,1 Person Assistance,Use of Upper Extremities Comments Mobility Comments Pt was in chair upon PT arrival. Yunier Olsen attended CG session. Went through post op precautions with both and safety awareness. Pt then got up with FWW CGA. Pt then walked with CGA FWW with step to pattern. Pt cont to be impulsive and easily distracted. However, Son was able to constantly direct pt's focus. Pt then completed stair training with me with R sam and Federica RIVERA. Pt needed step by step instructions for step sequence. No LOB noted. Son then completed stair climbing with pt with MUSCULOSKELETAL PHYSICIAN as well. They both completed it safely. Pt then walked to her room and sat in chair. Call light placed within reach. Gait Assessment Gait Gait Assistance Required: Contact Guard Assist Distance (Feet) 200 Able to Maintain Weight Bearing Status Yes During Gait Assistive Devices Assistive Device Gait Belt,Front Wheeled Walker Orthotic/Prosthetic Devices or Brace: No Gait Deviations General Gait Pattern Antalgic,Decreased Stride Length,Decreased Feet Clearance,Flexed Trunk,Step-to Gait Factors Limiting Gait Function Factors Limiting Gait Function Decreased Activity Tolerance, Decreased Strength,Difficulty Following Directions,Limited Range of Motion,Pain,Poor Balance,Poor Safety Awareness Comments Gait Comments see mobility comments. Stair Climbing Assessment Evaluation Level of Assist On Stairs Minimal Assistance Devices Stair Climbing Assistive Devices Right Railing Technique/Endurance Stair Climbing Direction Ascend and Descend Stair Climbing Technique Step to Step Number of Steps Climbed 3 Stair Climbing Set # Repetitions (reps) 1 Comments Stair Climbing Comments see mboility comments. PT-Balance Assessment Sitting Balance and Reactions Static Sitting Balance Ability Normal Dynamic Sitting Balance Ability Normal Standing Balance and Reactions Static Standing Balance Ability Good Dynamic Standing Balance Ability Fair Device Used FWW M5 PT-IP Objective Assessments Start: 09/03/20 08:35 Freq: NEEDED Status: Discharge Protocol: Document 09/03/20 10:31 (Rec: 09/03/20 10:56 [id number]) Orientation Orientation/Cognition Level of Alertness Confusional State Orientation Name,Age,Birthday,Month,Date, Year,Day of Week,Place, Situation Language Function Ability No Deficits Noted Safety Awareness Decreased Safety Awareness Memory Description Short Term Impaired Comments pt was very impulsive and easily distracted. She has difficulty following instructions and needed multiple reminders for safety awareness. Gross Range of Motion Upper Extremity ROM Assessment Within Functional Limits Lower Extremity ROM Assessment Right Impaired Strength Upper Extremity Strength Assessment Within Functional Limits Lower Extremity Strength Assessment Right Impaired Hip 3/5 Knee 4/5 Sensation Assessment Sensation Gross Sensation WNL M6 PT-IP Treatment Start: 09/03/20 08:35 Freq: NEEDED Status: Discharge Protocol: Document 09/03/20 10:31 HH (Rec: 09/03/20 10:56 HH [id number]) Physical Therapy Treatment Exercises Exercises Ankle Pumps,Gluteal Sets Education Education Provided Precautions,Weight Bearing Status,Post-Op Packet,Safety M7 PT-IP Assessment and Plan Start: 09/03/20 08:35 Freq: NEEDED Status: Discharge Protocol: Document 09/03/20 13:59 HH (Rec: 09/03/20 14:12 HH [id number]) PT Summary Assessment and Plan Potential Rehabilitation Potential Good Status of Condition at Evaluation Stable Summary Impairments Pain,ROM,Strength,Balance, Cognition,Bed Mobility, Transfers,Gait,Activity Tolerance Progress Towards Goals Safe For Discharge Assessment Summary CG training conducted with yunier Tellez. Completed gait training and stair climbing with them and son was able to provide clear instruction and direct pt's focus appropriately. Pt is safe to go home at this point with his assistance. Frequency of Treatment Frequency Of Treatment Discharge Precautions Anterior Hip Precautions No Hip Extension,No Hip External Rotation Recommendations To Nursing Amount of Assist Needed 1 Person Assist Discharge Recommendations PT Discharge Recommendations Home with Assistance, Outpatient PT Transportation Needs at Discharge Private Vehicle
== END 2020-09-03 14:12 | disposition home or self-care (01) ==
LOC: OR 11:39 → AC 11:40
PROVIDERS: PCP Nurse Practitioner Family; Referring Provider Orthopaedic Surgery; Visit Provider Orthopaedic Surgery
PROC: (CPT 27130; principal; 2020-09-02 13:45)
DX: M16.11 Unilateral primary osteoarthritis, right hip (principal); I10 Essential (primary) hypertension; K22.4 Dyskinesia of esophagus; F41.9 Anxiety disorder, unspecified; F32.9 Major depressive disorder, single episode, unspecified; M48.02 Spinal stenosis, cervical region; Z98.1 Arthrodesis status
CPT/HCPCS: 27130; 36415; 73502; 73503; 76000; 85014; 85018; 94760; 97116; 97161; 97530; C1776; C9290; J0690; J1100; J2274; J2405; J2704; J3010